=== PATIENT | female | born 1945 | race Caucasian/White ===

== ENCOUNTER 2017-04-23 08:58 | Outpatient (CLI) | payer MEDICARE, OTHER ==
[~2017-04-23] VITALS: Ht 170.2 cm; Wt 81.6 kg
[2017-04-23 09:10] VITALS: BP 155/82
[2017-04-23] MEDS ORDERED: CYCL1DRO OU (09:13)
[2017-04-23] MEDS ORDERED: OMEP20CA12 PO (09:13)
[2017-04-23 09:50] LABS: BASOPHILS % (AUTO) 1 % (0-10); BILIRUBIN,URINE NEGATIVE (NEGATIVE); EOSINOPHILS # (AUTO) 0.2 10^3/uL (0.0-0.3); EOSINOPHILS % (AUTO) 2 % (0-10); KETONES,URINE NEGATIVE (NEGATIVE); LEUKOCYTE ESTERASE ,URINE 1+ (NEGATIVE); LYMPHOCYTES # (AUTO) 1.4 X 10^3 (1.0-4.0); LYMPHOCYTES % (AUTO) 22 % (12-44); MEAN CORPUSCULAR HEMOGLOBIN 31 PG (25-34); MEAN CORPUSCULAR HGB CONC 34 G/DL (32-36); MEAN CORPUSCULAR VOLUME 90 FL (80-99); MEAN PLATELET VOLUME 9.6 FL (7.4-10.4); MONOCYTES # (AUTO) 0.4 X 10^3 (0.0-1.0); MONOCYTES % (AUTO) 6 % (0-12); NEUTROPHILS # (AUTO) 4.5 X 10^3 (1.8-7.8); NEUTROPHILS % (AUTO) 69 % (42-75); NITRITE,URINE NEGATIVE (NEGATIVE); PH,URINE 7 (5-9); PLATELET COUNT 276 10^3/uL (130-400); PROTEIN,URINE NEGATIVE (NEGATIVE); RED BLOOD COUNT 4.59 10^6/uL (4.35-5.85); RED CELL DISTRIBUTION WIDTH 12.9 % (10.0-14.5); UROBILINOGEN,URINE NORMAL (NORMAL); WHITE BLOOD COUNT 6.5 10^3/uL (4.3-11.0)
[2017-04-23 09:57] LABS: SQUAMOUS EPITHELIAL CELL,UR >50 /HPF
== END 2017-04-23 09:45 | disposition home or self-care (01) ==
LOC: PREOP 08:58
PROVIDERS: ATTEND Obstetrics & Gynecology
DX: Z01.812 Encounter for preprocedural laboratory examination (principal); Z11.2 Encounter for screening for other bacterial diseases; N81.10 Cystocele, unspecified; N81.6 Rectocele
CPT/HCPCS: 36415; 81000; 85025; 86850; 86900; 86901; 87081

== ENCOUNTER 2017-04-27 06:10 | Day surgery (SDC) | payer MEDICARE, OTHER ==
[~2017-04-27] VITALS: Ht 170.2 cm; Wt 81.6 kg
[2017-04-27] VITALS (9 sets, daily range): BP systolic 83–137; BP diastolic 49–86
[~2017-04-27 06:10] MED LIST: CYCL1DRO OU; OMEP20CA12 PO
--- OUTSIDE RECORDS SUMMARY | 2017-04-27 06:13 | XMS REPORT ---
Author Author WILEY FITZPATRICK Organization [employer] Address Unknown Phone Unavailable Care Team Providers Care Dry Drug Worker Name Role Phone WILEY FITZPATRICK CP Unavailable Allergies, Adverse Reactions, Alerts Substance Reaction Event Type N.K.D.A. Info Not Available Non Drug Allergy Problems Problem Type Condition Code Onset Dates Condition Status Problem Gastroesophageal reflux disease without esophagitis K21.9 Active Problem Routine general medical examination at health care facility V70.0 Active Problem Routine medical exam Z00.00 Active Assessment Routine medical exam Z00.00 Active Assessment Gastroesophageal reflux disease without esophagitis K21.9 Active Problem Unspecified tear film insufficiency 375.15 Active Problem Esophageal reflux 530.81 Active Medications Medication Code System Code Instructions Start Date End Date Status Dosage Restasis [facility] [address]-60 0.05 % Jan 22, 2014 instill 1 drop into affected eye(s) by ophthalmic route 2 times per day Omeprazole [facility] 08004130021 20 MG oral daily 1 capsule Procedures Procedure Coding System Code Date Office Visit, Est Pt., Level 4 CPT-4 19848 August 25, 2015 Vital Signs Date/Time: August 25, 2015 Cardiac Monitoring Heart Rate 78 bpm Temperature 97.5 F Height 67 in Blood Pressure Diastolic 76 mmHg Blood Pressure Systolic 118 mmHg Results No Known Results Summary Purpose [employer] Submission
--- OUTSIDE RECORDS SUMMARY | 2017-04-27 06:13 | XMS REPORT ---
Author Author WILEY FITZPATRICK Organization [employer] Address Unknown Phone Unavailable Care Team Providers Care Cement Handler Name Role Phone WILEY FITZPATRICK Unavailable Allergies No Known Allergies Problems Problem Type Condition Code Onset Dates Condition Status Problem Unspecified tear film insufficiency 375.15 Active Problem Esophageal reflux 530.81 Active Problem Routine general medical examination at health care facility V70.0 Active Medications Medication Code System Code Instructions Start Date End Date Status Dosage Azithromycin [facility] [address]-83 250 MG Orally Once a day May 19, 2015 May 24, 2015 2 tablets on the first day, then 1 tablet daily for 4 days Results No Known Results Summary Purpose [employer] Submission
--- OUTSIDE RECORDS SUMMARY | 2017-04-27 06:13 | XMS REPORT | Continuity of Care Document ---
Author Author [facility] Address Unknown Phone Unavailable Allergies There is no data. Medications There is no data. Problems Date Dx Coded Attending Type Code Diagnosis Diagnosed By 09/29/2013 MARY CARRASCO DO 375.15 TEAR FILM INSUFFICIENCY UNSPECIFIED 09/29/2013 CARRASCO DO MARY K 530.81 GERD 09/29/2013 ULYSSES CARRASCO DOA K V70.0 ROUTINE GENERAL MEDICAL EXAMINATION AT A HEALTH CARE FACILITY 09/29/2013 MAD[facility] DIRECTOR CRITICAL CARE, WILEY L 375.15 TEAR FILM INSUFFICIENCY UNSPECIFIED 09/29/2013 MADL DIRECTOR CRITICAL CARE, WILEY L 530.81 GERD 09/29/2013 MADL DIRECTOR CRITICAL CARE, WILEY L V70.0 ROUTINE GENERAL MEDICAL EXAMINATION AT A HEALTH CARE FACILITY 09/29/2013 MADL DIRECTOR CRITICAL CARE, WILEY L 375.15 TEAR FILM INSUFFICIENCY UNSPECIFIED 09/29/2013 MADL DIRECTOR CRITICAL CARE, WILEY L 530.81 GERD 09/29/2013 MADL DIRECTOR CRITICAL CARE, WILEY L V70.0 ROUTINE GENERAL MEDICAL EXAMINATION AT A HEALTH CARE FACILITY 09/07/2014 MADL DIRECTOR CRITICAL CARE, WILEY L 719.46 PAIN IN JOINT INVOLVING LOWER LEG 09/07/2014 MADL DIRECTOR CRITICAL CARE, WILEY L 719.46 PAIN IN JOINT INVOLVING LOWER LEG Procedures Code [place] [address] XRAY KNEE LEFT 3 VIEWS 09/07/2014 ORTHOPEDITA HUGO 09/07/2014 Results There is no data. Encounters ACCT No. Visit Date/Time Discharge Status Pt. Type Provider Facility Loc./Unit Complaint [id number] 09/07/2014 11:18:00 09/07/2014 23:59:59 CLS Outpatient MADL DIRECTOR CRITICAL CARE, WILEY L [id number] 09/07/2014 11:18:00 09/07/2014 23:59:59 CLS Outpatient MAD[facility] DIRECTOR CRITICAL CARE, WILEY L [id number] 09/29/2013 16:55:00 09/29/2013 23:59:59 [facility] Outpatient MARY CARRASCO DO
[2017-04-27] MEDS ORDERED: NS (IVPB) 100 ML ONE (06:47)
[2017-04-27] MEDS ORDERED: VASOPRESSIN INJECTION 20 UNIT/ML VIAL ONE (06:47)
[2017-04-27] MEDS ORDERED: ESTROGENS CONJ. CREAM 30 GM (PREMARIN) TUBE ONE (06:47)
[2017-04-27] MEDS ORDERED: proPOfol 200 MG/20 ML (DIPRIVAN) VIAL IV ONE (06:49)
[2017-04-27] MEDS ORDERED: SEVOFLURANE (ULTANE) 15 ML INHAL SOLN ONE ×5 (06:49→09:37)
[2017-04-27] MEDS ORDERED: HURRICAINE EXT TUBE (BENZOCAINE) ONE (06:49)
[2017-04-27] MEDS ORDERED: LIDOCAINE PF 2% 5 ML (XYLOCAINE) VIAL ONE (06:49)
[2017-04-27] MEDS ORDERED: DEXAMETHASONE 10 MG/ML (DECADRON) 1 ML VIAL ONE (06:49)
[2017-04-27] MEDS ORDERED: MIDAZOLAM 2 MG/2 ML (VERSED) VIAL ONE (06:50)
[2017-04-27] MEDS ORDERED: fentaNYL INJECTION 100 MCG/2 ML AMP ONE (06:50)
[2017-04-27] MEDS ORDERED: NS (IVPB) 50 ML ONE (07:00)
[2017-04-27] MEDS ORDERED: metroNIDAZOLE 500MG/100ML IVPB 100 ML ONE (07:00)
[2017-04-27] MEDS ORDERED: ceFAZolin 1,000 MG (ANCEF) VIAL ONE (07:00)
[2017-04-27] MEDS ORDERED: ceFAZolin 1 GM/NS 50 ML IVPB IV ONE ×2 (07:15)
[2017-04-27] MEDS ORDERED: metroNIDAZOLE 500MG/100ML IVPB 100 ML IV ONE (07:15)
[2017-04-27] MEDS ORDERED: ceFAZolin INJECTION 1,000 MG in NS (IVPB) 50 ML IV ONE (07:15)
[2017-04-27] MEDS ORDERED: CATHETER FLUSH 10 ML SYR IV PRN (07:15)
[2017-04-27] MEDS ORDERED: metroNIDAZOLE 500 MG/100 ML IVPB (PRE-MIX) IV ONE (07:15)
[2017-04-27] MEDS ORDERED: ATRACURIUM 50 MG/5 ML (TRACRIUM) IV ONE (07:16)
[2017-04-27] MEDS: LACTATED RINGERS 1,000 ML IV PRN ×2 (07:20→09:35)
--- NOTE | 2017-04-27 08:32 | History & Physical-Surgical ---
HPO-Surgical History of Present Illness Chief Complaint: Cystocele (sagging bladder) stress incontinence Diagnosis/Surgical Indication: cystocele, Stress incontinence Procedure: ANT/POST COLPORRHAPHY, SOLYX PV SLING Date of Surgery: Apr 27, 2017 Weight (Pounds): 180 Weight (Ounces): 0.0 Height (Feet): 5 Height (Inches): 7.00 Allergies and Home Medications Allergies Coded Allergies: No Known Drug Allergies (Unverified , 01/29/11) Home Medications Cyclosporine 1 Each Droperette, 1 DROP OU BID, (Reported) Omeprazole 20 Mg Capsule.dr, 20 MG PO DAILY, (Reported) Past Aazpxmp-Pqhqfi-Clacst Hx Patient Social History Marrital Status: Employed/Student: retired Alcohol Use: Denies Use Smoking Status: Former Smoker (quit > 30 years ago) Recent Hopitalizations: No Seasonal Allergies Seasonal Allergies: Yes Surgeries Yes Eye Surgery, Tonsillectomy Respiratory No Cardiovascular No Neurological No Reproductive System : No Hx : 5 Hx Para: 5 Hx Total # of Abortions (Spona: 0 Genitourinary No Gastrointestinal Yes Gastroesophageal Reflux Musculoskeletal Yes Arthritis Endocrine History of Endocrine Disorders: No Are Your Blood Sugars Over 250: No HEENT HEENT Disorders: Epiglottis Cancer No Did You Recieve Any Treatments: No Psychosocial History of Psychiatric Problem: No Integumentary History of Skin or Integumenta: No Blood Transfusions History of Blood Disorders: No Adverse Reaction to a Blood Tr: No Reviewed Nursing Assessment Reviewed/Agree w Nursing PMH: Yes Family Medical History Significant Family History: No Pertinent Family Hx Family Hx: Alcoholism 19 MOTHER Asthma 19 FATHER Cardiovascular disease 19 MOTHER Completed stroke 19 MOTHER Dementia 19 MOTHER Hypertension 19 MOTHER Respiratory disorder 19 FATHER (lung ca) Exam Vital Signs See RN Notes General Appearance: Alert, Oriented X3 Respiratory: Clear to Auscultation, Normal Air Movement Cardiovascular: Regular Rate, Normal S1, Normal S2, No Murmurs Abdominal: Normal Bowel Sounds, Soft, No Tenderness, No Hepatosplenomegaly Extremities: No Clubbing Skin: No Rashes Neuro: Normal Gait Assessment/Plan Assessment and Plan Symptomatic cystocele and Stress incontinence. Plan anterior colporrhaphy with Solyx pubovaginal sling. Declines hysterectomy Risks included, bleeding, infection, injury to bowel, bladder and ureter. Will used prophylactic antibiotics and SCDs NPO after Midnight proper consents signed Problems: PEACE,MARIO C DO Apr 27, 2017 8:32 am
[2017-04-27] MEDS ORDERED: GLYCOPYRROLATE 0.2 MG/ML (ROBINUL) 2 ML VIAL ONE (09:06)
[2017-04-27] MEDS ORDERED: METOCLOPRAMIDE INJ 10 MG/2 ML (REGLAN) IV PRN (09:45)
[2017-04-27] MEDS ORDERED: HYDROcodone/APAP 5 MG/325 MG (LORTAB) TAB PO PRN (09:45)
[2017-04-27] MEDS ORDERED: morphine INJ 10 MG/ML 1ML (SYR OR VIAL) IV PRN (09:45)
[2017-04-27] MEDS ORDERED: ONDANSETRON 4 MG/2 ML (SDV) Z0FRAN IV PRN (09:45)
[2017-04-27] MEDS ORDERED: BENZOCAINE/MENTHOL (DERMOPLAST) 56 ML CAN TP PRN (09:45)
--- NOTE | 2017-04-27 09:45 | Operative Report ---
Operative Report Date of Procedure/Surgery Apr 27, 2017 Surgeon (s) MARIO PEACE DO Transformer Tester (s): NA Post-Operative Diagnosis cystocele Stress incontinence UIterine prolapse Procedure Performed anterior colporrhaphy Solyx pubovavinal sling Description of Procedure Anesthesia Type: General Estimated blood loss (mL): 20 Specimen(s) collected/removed none Description of the Procedure The patient was taken to the operating room where sequential compression devices were placed prior to induction of anesthesia. Intravenous fluids were running. General endotracheal anesthesia was obtained without difficulty. She was then repositioned in the dorsal lithotomy position with the use of Yellofin stirrups. She was prepped and draped in the typical sterile fashion. A Rosado catheter was placed in the bladder. The Lonestar retractor was placed and sutured into place. The anterior vaginal epithelium was grasped in the midline with an Allis clamp. The anterior vaginal epithelium was injected with dilute vasopressin and then incised in the midline. The epithelium was dissected off the underlying fascia and then the midline cystocele was repaired with interrupted 2-0 Vicryl. The excess epithelium was incised and then the defect was closed with 2-0 Vicryl in a running fashion. A 1 cm incision was made in the suburethral space with a scalpel about 1.5 cm from the urethral meatus. I dissected bilaterally to the obturator membranes and then inserted the Solyx bilaterally and then tightened under the midurethra. I did a cystoscopy which was negative. There was bilateral urethral efflux of urine. I then kept 300 ml in the bladder and did a Cred. There was minimal leakage. The sling laid gently under the urethra and was not too tight. There was no intravesicular pathology. The incision was closed with 4-0 Monocryl in a running fashion. Rosado was reinserted. Vaginal pack with Estrace cream was placed. Patient was awakened and taken to the recovery room in stable condition. Following the case, instrument counts were correct. The patient was repositioned in the supine position and awakened from general anesthesia without difficulty. She was taken to recovery in stable condition. She will be observed overnight. Findings of the Procedure 3+ cystocele, > 50 degree rotation of urethra. 2-3+ uterine descent (patient declined hysterectomy), 1+ rectocele Allergies and Home Medications Allergies Coded Allergies: No Known Drug Allergies (Unverified , 01/29/11) Home Medications Cyclosporine 1 Each Droperette, 1 DROP OU BID, (Reported) Docusate Sodium 100 Mg Capsule, 100 MG PO BID, #60 Prescribed by: MARIO PEACE on 04/28/17 1000 Ibuprofen 600 Mg Tablet, 600 MG PO Q6H, #60 Prescribed by: MARIO PEACE on 04/28/17 1000 Omeprazole 20 Mg Capsule.dr, 20 MG PO DAILY, (Reported) [Hydrocodone Bit/Acetaminophen] Y TAB, 1-2 TAB PO Q4H PRN for PAIN-MODERATE TO SEVERE, #30 Prescribed by: MARIO PEACE on 04/28/17 1000 MARIO PEACE DO Apr 27, 2017 09:45
[2017-04-27] MEDS ORDERED: morphine INJ 10 MG/ML 1ML (SYR OR VIAL) IVP PRN (10:00)
[2017-04-27] MEDS ORDERED: KETOROLAC 30 MG/ML VIAL ONE (10:04)
[2017-04-27] MEDS: KETOROLAC 15 MG/ML VIAL IVP PRN ×2 (10:06→17:00)
[2017-04-27] MEDS: D5 LR IV SOLUTION 1,000 ML IV SCH ×2 (11:15→19:10)
[2017-04-27] MEDS ORDERED: DOCUSATE SODIUM 100 MG (COLACE) CAP PO SCH (21:00)
[2017-04-28] MEDS: IBUPROFEN 600 MG (MOTRIN) TAB PO SCH ×2 (00:15→06:07)
[2017-04-28 00:20] VITALS: BP 96/60
[2017-04-28] MEDS: D5 LR IV SOLUTION 1,000 ML IV SCH (02:40)
[2017-04-28 06:05] VITALS: BP 104/60
[2017-04-28] MEDS ORDERED: IBUPROFEN 600 MG (MOTRIN) TAB PO SCH (08:00)
[2017-04-28] MEDS ORDERED: DOCUSATE SODIUM 100 MG (COLACE) CAP PO SCH (09:00)
[2017-04-28 09:17] VITALS: BP 112/68
--- NOTE | 2017-04-28 09:59 | Progress Note-Standard ---
Standard Progress Note Progress Notes/Assess & Plan Date Seen by Provider: Apr 28, 2017 Time Seen by Provider: 09:45 Progress/Assessment & Plan Doing well today pod #1 s/p anterior colporrhaphy and solyx PV sling. she may have had a reaction to Toradol, though no rash, no dyspnea. Did not report to me. RN called with report. Pre RN notes - RN TO PT ROOM, PT SITTING UP IN BED EATING TACO SALAD, PT REPORTS "I'M FINALLY BACK", PT REPORTS AFTER GETTING SCHEDULED TORADOL SHE FELT "COLD THEN HOT, THEN DIZZY, THEN I WENT TO SLEEP FOR AWHILE AND NOW I FEEL FINE , EXPLAINED TO PT SHE RECEIVED THIS SAME MED IN RECOVERY WITHOUT A REACTION BUT NOTED I WOULD CALL DR PEACE AND NOTIFY HER TO STOP MEDICINE, PT VERBALIZES UNDERSTANDING AND IS VERY APPRECIATIVE, EXPLAINED TO PT ANYTIME SHE REPORTS FEELING "DIFFERENT" SHE NEEDS TO NOTIFY RN. Vitals are stable DC home once voids MARIO PEACE DO Apr 28, 2017 09:59
[2017-04-28] MEDS ORDERED: DOCU100C37 PO (10:00)
[2017-04-28] MEDS ORDERED: IBUP-1773 PO (10:00)
[2017-04-28] MEDS ORDERED: Hydrocodone Bit/Acetaminophen PO (10:00)
--- NOTE | 2017-04-28 10:06 | Discharge Inst-Women's Service ---
Discharge Inst-Women's Serv Depart Medication/Instructions New, Converted or Re-Newed RX: RX on Chart Final Diagnosis stress incontinence cystocele Procedure- anterior colporrhaphy, solyx pubovaginal sling Consults/Follow Up Additional Follow Up: Yes Activity Activity: Activity as Tolerated Driving Instructions: No Driving for 1 Week NO SMOKING: NO SMOKING Nothing Inside Vagina: No Douching, No Pulcifer, No Tampons Diet Discharge Diet: No Restrictions Symptoms to Report to : Bleeding Excessive, Pain Increased, Fever Over 101 Degrees F, Vaginal Bleeding Increase, Cramps in Feet or Legs, Vaginal Discharge Foul For Any Problems or Questions: Contact Your Physician Skin/Wound Care Stitches/[place]/Dermabond: Dermabond Bathing Instructions: MARIO Gaspar DO Apr 28, 2017 10:05
--- NOTE | 2017-04-28 12:30 | Anesthesia-General Post-Op ---
General Patient Condition Mental Status/LOC: Same as Preop Cardiovascular: Satisfactory Nausea/Vomiting: Absent Respiratory: Satisfactory Pain: Controlled Complications: Absent Post Op Complications Complications None Follow Up Care/Instructions Patient Instructions None needed. Anesthesia/Patient Condition Patient Condition Patient is doing well, no complaints, stable vital signs, no apparent adverse anesthesia problems. No complications reported per nursing. D/C home per [facility] Criteria: Yes ELIO CORREA CRNA Apr 28, 2017 12:30
== END 2017-04-28 10:50 | disposition home or self-care (01) ==
LOC: SDC 06:10 → WS 11:04 → SDC 04-28 10:50
PROVIDERS: ATTEND Obstetrics & Gynecology
DX: N81.11 Cystocele, midline (principal); N39.3 Stress incontinence (female) (male); K21.9 Gastro-esophageal reflux disease without esophagitis; M19.91 Primary osteoarthritis, unspecified site; Z79.899 Other long term (current) drug therapy
CPT/HCPCS: 94664

== ENCOUNTER → 2017-12-20 | Outpatient (CLI) | payer MEDICARE, OTHER ==
[~2017-12-20] MED LIST changes: +DOCU100C37 PO; +Hydrocodone Bit/Acetaminophen PO; +IBUP-1773 PO
--- NOTE | 2017-12-20 08:47 | Diagnostic Imaging Report ---
Indication: Osteoporosis screening. No prior studies are available for comparison. Bone mineral analysis of the lumbar spine and bilateral hips was performed. Bone mineral density of the lumbar spine L2 to L4 is 1.237 with a T score of 0.3. The bone mineral density of the left femoral neck is 0.774 with a T score -1.9. Bone mineral density of the right femoral neck is 0.780 with T score -1.9. Impression: Normal bone mineral density of the lumbar spine with osteopenia of bilateral femoral necks. Dictated by: Dictated on workstation # [id number]
== END ==
LOC: RAD 08:14
PROVIDERS: ATTEND Pediatrics
DX: Z13.820 Encounter for screening for osteoporosis (principal); Z12.11 Encounter for screening for malignant neoplasm of colon; M85.88 Other specified disorders of bone density and structure, other site
CPT/HCPCS: 77080

== ENCOUNTER 2018-04-15 11:27 | Outpatient (CLI) | payer MEDICARE, OTHER ==
[~2018-04-15] VITALS: Ht 170.2 cm; Wt 89.2 kg
[2018-04-15] MEDS ORDERED: IBUP-2055 PO (11:37)
[2018-04-15] MEDS ORDERED: LYSI500T3 PO (11:37)
[2018-04-15] MEDS ORDERED: CALC-794 PO (11:37)
[2018-04-15 11:40] VITALS: BP 152/90
[2018-04-15 12:12] LABS: BASOPHILS % (AUTO) 1 % (0-10); EOSINOPHILS # (AUTO) 0.1 10^3/uL (0.0-0.3); EOSINOPHILS % (AUTO) 2 % (0-10); HEMATOCRIT 41 % (35-52); HEMOGLOBIN 13.7 G/DL (11.5-16.0); LYMPHOCYTES # (AUTO) 1.3 X 10^3 (1.0-4.0); LYMPHOCYTES % (AUTO) 20 % (12-44); MEAN CORPUSCULAR HEMOGLOBIN 30 PG (25-34); MEAN CORPUSCULAR HGB CONC 33 G/DL (32-36); MEAN CORPUSCULAR VOLUME 90 FL (80-99); MEAN PLATELET VOLUME 9.5 FL (7.4-10.4); MONOCYTES # (AUTO) 0.5 X 10^3 (0.0-1.0); MONOCYTES % (AUTO) 7 % (0-12); NEUTROPHILS # (AUTO) 4.6 X 10^3 (1.8-7.8); NEUTROPHILS % (AUTO) 70 % (42-75); PLATELET COUNT 269 10^3/uL (130-400); RED BLOOD COUNT 4.57 10^6/uL (4.35-5.85); RED CELL DISTRIBUTION WIDTH 13.2 % (10.0-14.5); WHITE BLOOD COUNT 6.6 10^3/uL (4.3-11.0)
[2018-04-15 12:29] LABS: INR 1.1 (0.8-1.4); PROTHROMBIN TIME PATIENT 13.8 SEC (12.2-14.7)
[2018-04-15 12:38] LABS: BILIRUBIN,URINE NEGATIVE (NEGATIVE); CLARITY,URINE CLEAR; COLOR,URINE YELLOW; GLUCOSE, URINE (UA) NEGATIVE (NEGATIVE); KETONES,URINE NEGATIVE (NEGATIVE); LEUKOCYTE ESTERASE ,URINE 2+ (NEGATIVE); NITRITE,URINE NEGATIVE (NEGATIVE); PH,URINE 5 (5-9); PROTEIN,URINE NEGATIVE (NEGATIVE); UROBILINOGEN,URINE NORMAL (NORMAL)
[2018-04-15 12:49] LABS: BACTERIA,URINE TRACE /HPF; SQUAMOUS EPITHELIAL CELL,UR 0-2 /HPF; WBC,URINE 0-2 /HPF
[2018-04-15 12:52] LABS: ERYTHROCYTE SEDIMENTATION RATE 8 MM/HR (0-30)
[2018-04-15 13:25] LABS: ALANINE AMINOTRANSFERASE 11 U/L (0-55); ALBUMIN 4.4 GM/DL (3.2-4.5); ALKALINE PHOSPHATASE 70 U/L (40-136); BILIRUBIN,TOTAL 0.4 MG/DL (0.1-1.0); BUN/CREATININE RATIO 16; CALCIUM 9.6 MG/DL (8.5-10.1); CARBON DIOXIDE 25 MMOL/L (21-32); CHLORIDE 103 MMOL/L (98-107); CREATININE SERUM 0.86 MG/DL (0.60-1.30); GFR ESTIMATED > 60; GLUCOSE 86 MG/DL (70-105); POTASSIUM 3.9 MMOL/L (3.6-5.0); SODIUM 136 MMOL/L (135-145); TOTAL PROTEIN 7.4 GM/DL (6.4-8.2)
--- NOTE | 2018-04-15 13:32 | Diagnostic Imaging Report ---
INDICATION: Preoperative evaluation for left knee replacement COMPARISON: None FINDINGS: Frontal and lateral views of the chest demonstrate normal heart size and pulmonary vascularity. The lungs are clear. There are no signs of infiltrate, pleural effusions or pneumothoraces. The visualized osseous structures show no acute abnormalities. IMPRESSION: 1. No acute process. No signs of infiltrates, effusions or pneumothoraces. Dictated by: Dictated on workstation # [id number]
== END 2018-04-15 14:25 | disposition home or self-care (01) ==
LOC: PREOP 11:27
PROVIDERS: ATTEND Orthopaedic Surgery
DX: Z01.810 Encounter for preprocedural cardiovascular examination (principal); Z01.811 Encounter for preprocedural respiratory examination; Z01.812 Encounter for preprocedural laboratory examination; Z11.2 Encounter for screening for other bacterial diseases; M17.12 Unilateral primary osteoarthritis, left knee; R53.83 Other fatigue
CPT/HCPCS: 36415; 71046; 80053; 81000; 85025; 85610; 85652; 86850; 86900; 86901; 87081; 93005

== ENCOUNTER 2018-04-24 07:00 | Inpatient (IN) | payer MEDICARE, OTHER ==
--- NOTE | 2018-04-15 11:09 | HISTORY AND PHYSICAL ---
DATE OF SERVICE: 04/24/2018 ADMISSION HISTORY AND PHYSICAL DATE OF ADMISSION: 04/24/2018 HISTORY OF PRESENT ILLNESS: The patient is a 72-year-old female with progressive worsening left knee pain. She has severe patellofemoral and moderate medial and lateral arthrosis on radiographs. She has undergone treatment with multiple injections as well as activity modifications, anti-inflammatories and home exercises without relief. Due to functional impairment, the patient is failure to improve with conservative measures. The patient elected to proceed with surgical intervention. REVIEW OF SYSTEMS: No chest pain, no shortness of breath. No dysuria. PAST MEDICAL HISTORY: Reflux. PAST SURGICAL HISTORY: Tonsillectomy and cataract excision. FAMILY HISTORY: Significant for hypertension, ischemic heart disease. PRIMARY CARE PROVIDER: [facility]. MEDICATIONS: Restasis and omeprazole. ALLERGIES: No known drug allergies. SOCIAL HISTORY: The patient denies alcohol, tobacco use. PHYSICAL EXAMINATION: GENERAL: The patient is well developed, well-nourished, in no acute distress. HEENT: Normocephalic, atraumatic. Pupils equal, round, react to light. Oropharynx is clear. NECK: Supple, no lymphadenopathy. LUNGS: Clear to auscultation bilaterally. HEART: Regular rate and rhythm. ABDOMEN: Soft, nontender, nondistended. EXTREMITIES: The patient ambulates with an antalgic gait. Her left knee demonstrates a moderate effusion. She has marked patellofemoral crepitus and pain with patellar loading. There is no varus valgus laxity. Negative anterior and posterior drawer. Range of motion is 0/2/130. IMPRESSION: Left knee severe osteoarthritis, unresponsive to conservative measures. PLAN: Left total knee arthroplasty. The risks, benefits, options, ramifications and recovery were discussed at length with the patient. She understands and wishes to proceed. In addition, the patient will require a regular inpatient admission for pain management, physical therapy and gait training. Date of admission will be 04/24/2018. Job ID: [id number] DocumentID: [id number] Dictated Date: 04/15/2018 10:41:27 Metal Cut Off Saw Tender Date: 04/15/2018 11:08:47 Dictated By: PAZ LOPEZ MD
[~2018-04-24] VITALS: Ht 170.2 cm; Wt 89.2 kg
[~2018-04-24 07:00] MED LIST changes: +CALC-794 PO; +IBUP-2055 PO; +LYSI500T3 PO
[2018-04-24] MEDS ORDERED: CEFUROXIME INJECTION 1,500 MG in NS (IVPB) 50 ML IV ONE (07:15)
--- NOTE | 2018-04-24 07:26 | Progress Note-Pre Operative ---
Pre-Operative Progress Note H&P Reviewed The H&P was reviewed, patient examined and no changes noted. Date Seen by Provider: Apr 24, 2018 Time Seen by Provider: 07:26 Date H&P Reviewed: Apr 24, 2018 Time H&P Reviewed: 07:26 Pre-Operative Diagnosis: left knee primary osteoarthritis PAZ LOPEZ MD Apr 24, 2018 07:26
--- NOTE | 2018-04-24 07:27 | Progress Note-Post Operative ---
Post-Operative Progess Note Surgeon (s)/Waste Water Worker (s) Surgeon PAZ LOPEZ MD Waste Water Worker: Remington Hong Pre-Operative Diagnosis left knee primary osteoarthritis Post-Operative Diagnosis left knee primary osteoarthritis Procedure & Operative Findings Date of Procedure 04/24/18 Procedure Performed/Findings left total knee arthroplsty Anesthesia Type GETA Estimated Blood Loss Estimated blood loss (mL): minimal Specimens/Packing Specimens Removed minimal Packing: none PAZ LOPEZ MD Apr 24, 2018 07:27
[2018-04-24] MEDS ORDERED: OXYC1TAB87 PO (07:28)
[2018-04-24 07:30] VITALS: BP 122/65
[2018-04-24] MEDS ORDERED: INTRA-ARTICULAR IU ONE ×5 (07:30)
--- NOTE | 2018-04-24 07:31 | D/C HH Face to Face Order ---
D/C Face to Face Orders Instructions for Patient [facility], Patient Instructions/FollowUp: three weeks Physician to follow Patient: three weeks Discharge Diet for Home: Regular Diet Patient Data-Allergies,Ht & Wt Patient Allergies: Coded Allergies: No Known Drug Allergies (Unverified , 01/29/11) Height (Feet): 5 Height (Inches): 7.00 Weight (Pounds): 196 Weight (Ounces): 9.0 Home Health Need/Face to Face Date of Face to Face: Apr 24, 2018 Clinical Findings: Instability, Muscle weakness, Pain with ambulation, Unsteady gait I have seen Pt [id number]: Yes Discharged To: Home Diagnosis/Conditions: left total knee arthroplasty Patient is Homebound due to: [place] fall risk due to instabilty, Muscle weakness , Pain w/ambulation Homebound Status Due to the above stated illness, injury or surgical procedure (medical condition or diagnosis) and associated clinical findings, the patient is homebound because of his/her inability to leave home except with aid of a supportive device and/or person AND leaving the home requires a considerable and taxing effort or is medically contraindicated. Pt req the following assistanc: [facility] Nursing Orders Home Health Services Order: Physical Therapy-Evaluate & Treat dc left knee shay and apply steri strips 05/08/18 Therapy Orders Therapy Orders: Physical Therapy, PT to assess for OT Therapy Specific Orders: Teach enviro modifications/safety, Gait training, Increase strength/endurance, Provider maintenance therapy, Restore ROM Certify Stmt I certify that this patient is under my care and that I, a nurse practitioner or a physician; a radiology physician assistant working with me, had a face to face encounter that - meets the physician face to face encounter requirements with this patient as dated. PAZ LOPEZ MD Apr 24, 2018 07:31
[2018-04-24] MEDS: LACTATED RINGERS 1,000 ML IV PRN ×2 (07:50→09:55)
[2018-04-24] MEDS ORDERED: ONDANSETRON 4 MG/2 ML (SDV) Z0FRAN ONE (08:18)
[2018-04-24] MEDS ORDERED: BUPIVACAINE 0.5% 30 ML (SENSORCAINE) VIAL ONE (08:18)
[2018-04-24] MEDS ORDERED: DEXAMETHASONE 10 MG/ML (DECADRON) 1 ML VIAL ONE (08:18)
[2018-04-24] MEDS ORDERED: LIDOCAINE PF 2% 5 ML (XYLOCAINE) VIAL ONE (08:18)
[2018-04-24] MEDS ORDERED: proPOfol 200 MG/20 ML (DIPRIVAN) VIAL IV ONE (08:18)
[2018-04-24] MEDS ORDERED: SEVOFLURANE (ULTANE) 15 ML INHAL SOLN ONE (08:18)
[2018-04-24] MEDS ORDERED: MIDAZOLAM 2 MG/2 ML (VERSED) VIAL ONE (08:19)
[2018-04-24] MEDS ORDERED: fentaNYL INJECTION 100 MCG/2 ML AMP ONE (08:19)
[2018-04-24] MEDS ORDERED: ACETAMINOPHEN 325 MG TABLET PO PRN (09:15)
[2018-04-24] MEDS ORDERED: ONDANSETRON 4 MG/2 ML (SDV) Z0FRAN IVP PRN ×2 (09:15→11:15)
[2018-04-24] MEDS ORDERED: morphine PCA 100 MG/100 ML BAG IV PRN (09:15)
[2018-04-24] MEDS ORDERED: diphenhydrAMINE 50 MG/ML INJ (BENADRYL) IVP PRN (09:15)
[2018-04-24] MEDS ORDERED: TRANEXAMIC ACID 100 MG/ML 10 ML INJECTION IV ONE (09:32)
[2018-04-24] MEDS ORDERED: morphine INJ 10 MG/ML 1ML (SYR OR VIAL) ONE (11:02)
[2018-04-24] MEDS ORDERED: MEPERIDINE (DEMEROL) INJ 50 MG/ML ONE (11:06)
[2018-04-24] MEDS ORDERED: morphine INJ 10 MG/ML 1ML (SYR OR VIAL) IVP ONE (11:15)
[2018-04-24] MEDS ORDERED: HYDROmorphone 2 MG/ML VIAL (DILAUDID) IV ONE (11:15)
[2018-04-24] MEDS ORDERED: MEPERIDINE (DEMEROL) INJ 50 MG/ML IVP ONE (11:15)
--- NOTE | 2018-04-24 11:15 | Progress Note-Standard ---
Standard Progress Note Progress Notes/Assess & Plan Date Seen by a Provider: Apr 24, 2018 Time Seen by a Provider: 11:14 Progress/Assessment & Plan post op check no complaints radiographs--HW well positioned without fracture LLE--2 plus DP pulse with brisk cap refill. intact DF and PF of toes and ankle. sensation intact throughout s/p LTKA mobilize as able PAZ LOPEZ MD Apr 24, 2018 11:15
--- NOTE | 2018-04-24 11:41 | Diagnostic Imaging Report ---
EXAMINATION: Left knee in the OR at 11:07 AM. INDICATION: Postop total knee. TECHNIQUE: AP and lateral views were received from the OR. COMPARISON: There are no prior studies available for comparison. FINDINGS: There is a total knee prosthesis in place. The prosthetic elements appear to be in good position. There is gas in the soft tissues along the anterior aspect of the knee joint and there are skin shay evident. There is no fracture or acute bony abnormality noted. IMPRESSION: Stable post operative left knee. Dictated by: Dictated on workstation # [id number]
[2018-04-24 12:00] VITALS: BP 115/59
--- OUTSIDE RECORDS SUMMARY | 2018-04-24 12:40 | XMS REPORT ---
Author Author PAZ PAULA Organization [facility] Address [address] [place] [address] Care Team Providers Care Field Technical Specialist Name Role Phone PAZ PAULA Unavailable PROBLEMS Type Condition ICD9-CM Code NUZ60-HS Code Onset Dates Condition Status SNOMED Code Problem Osteoarthritis of both knees, unspecified osteoarthritis type M17.0 Active 157253663 Problem Female bladder prolapse N81.10 Active 651466406 Problem Gastroesophageal reflux disease without esophagitis K21.9 Active 862433940 ALLERGIES No Information ENCOUNTERS Encounter Location Date Diagnosis [facility] [id number] [place] [address] 26047- 0951 Apr, [facility] [id number] [place] [address] 34879- 1274 Apr, [facility] [id number] [place] [address] 87250- 7298 Mar, [address] [id number] [address] Mar, [facility] [id number] [place] [address] 22563- 1841 Mar, [facility] [id number] [place] [address] 08677- 9918 Mar, [facility] [id number] [place] [address] 00551- 8620 24 Jan, 2018 Gastroesophageal reflux disease without esophagitis K21.9 [facility] [id number] [place] [address] 26868- 8132 17 Jan, 2018 Left wrist tendonitis M77.8 and Callus of foot L84 [facility] [id number] [place] [address] 65595- 4540 Nov, Gastroesophageal reflux disease without esophagitis K21.9 ; Screening for malignant neoplasm of colon Z12.11 ; High risk for hip fracture Z91.89 ; Osteoarthritis of both knees, unspecified osteoarthritis type M17.0 and Routine medical exam Z00.00 [facility] [address], [place] [address] 2937 Nov, [facility] [id number] [place] [address] 51441- 6797 Mar, [facility] [id number] [place] [address] 42539- 9105 Jan, Female bladder prolapse N81.10 [facility] [id number] [place] [address] 63094- 4217 Jan, [facility] [id number] [place] [address] 61933- 3889 September, Bronchitis J40 and History of recent travel Z78.9 [facility] [id number] [place] [address] 67971- 5433 Oct, [facility] [id number] [place] [address] 72430- 9731 Oct, [facility] [address] [place] [address] 10952- 5106 Aug, Routine medical exam Z00.00 and Gastroesophageal reflux disease without esophagitis K21.9 [facility] [address], [place] [address] 0470 May, [facility] [id number] [address]- 7523 September, [facility] [id number] [place] [address] 69844- 5740 September, [facility] [address], [place] [address]- 1827 September, Osteoarthritis 715.90 [facility] [address], [place] [address]- 2546 September, [facility] [id number] [address]- 2685 Aug, [facility] [address], [place] [address]- 4046 Aug, [facility] [address], [place] [address]- 5457 Jun, [facility] [address], [place] [address]- 3603 Jun, [facility] [address] [place] [address] 14285- 0230 Jan, [facility] [address], [place] [address]- 8227 Jan, [facility] [address], [place] [address]- 5146 Dec, [facility] [address], [place] [address]- 3987 Dec, [facility] [address], [place] [address]- 3305 Oct, [facility] [id number], [place] [address]- 6655 Oct, [facility] [id number], [place] [address]- 5378 September, [facility] [id number], [place] [address]- 6511 September, IMMUNIZATIONS No Known Immunizations SOCIAL HISTORY Never Assessed REASON FOR VISIT Surgical clearance PLAN OF CARE VITAL SIGNS MEDICATIONS Unknown Medications RESULTS No Results PROCEDURES No Known procedures INSTRUCTIONS MEDICATIONS ADMINISTERED No Known Medications MEDICAL (GENERAL) HISTORY Type Description Date Medical History acid reflux Medical History Arthritis Surgical History tonsillectomy Surgical History wisdom teeth extraction Surgical History Bladder Suspension Surgery 05/2016 Hospitalization History childbirth only
--- OUTSIDE RECORDS SUMMARY | 2018-04-24 12:40 | XMS REPORT ---
Author Author SHANA LARSEN Organization [facility] Address [address] [place] [address] Care Team Providers Care Splicer Machine Operator Name Role Phone SHANA LARSEN Unavailable PROBLEMS Type Condition ICD9-CM Code [id number] Code Onset Dates Condition Status SNOMED Code Problem Osteoarthritis of both knees, unspecified osteoarthritis type M17.0 Active 138546828 Problem Female bladder prolapse N81.10 Active 549509428 Problem Gastroesophageal reflux disease without esophagitis K21.9 Active 266399487 ALLERGIES No Information ENCOUNTERS Encounter Location Date Diagnosis [place] [id number] [place] [address] 60314- 5884 Apr, [facility] [id number] [place] [address] 90219- 5504 Apr, [facility] [id number] [place] [address] 16753- 1499 Mar, [place] [id number] [address] Mar, [facility] [id number] [place] [address] 40325- 0927 Mar, [facility] [id number] [place] [address] 72377- 2355 Mar, [facility] [id number] [place] [address] 62757- 3015 24 Jan, 2018 Gastroesophageal reflux disease without esophagitis K21.9 [facility] [id number] [place] [address] 17262- 7258 17 Jan, 2018 Left wrist tendonitis M77.8 and Callus of foot L84 [facility] [id number] [place] [address] 19487- 6671 Nov, Gastroesophageal reflux disease without esophagitis K21.9 ; Screening for malignant neoplasm of colon Z12.11 ; High risk for hip fracture Z91.89 ; Osteoarthritis of both knees, unspecified osteoarthritis type M17.0 and Routine medical exam Z00.00 [facility] [address] [address]- 3734 Nov, [facility] [id number] [place] [address] 92850- 0182 Mar, [facility] [id number] [place] [address] 08909- 2671 Jan, Female bladder prolapse N81.10 [facility] [id number] [place] [address] 62347- 7884 Jan, [facility] [id number] [place] [address] 48790- 2181 September, Bronchitis J40 and History of recent travel Z78.9 [facility] [id number] [place] [address] 99636- 9770 Oct, [facility] [id number] [place] [address] 41040- 2809 Oct, [facility] [address] [place] [address] 72762- 5466 Aug, Routine medical exam Z00.00 and Gastroesophageal reflux disease without esophagitis K21.9 [facility] [address] [place] [address] 64289- 1035 May, [facility] [id number] [address]- 3480 September, [facility] [id number] [place] [address] 20422- 6042 September, [facility] [address] [address]- 3344 September, Osteoarthritis 715.90 [facility] [address] [address]- 2336 September, [facility] [address] [address]- 3754 Aug, [facility] [address] [address]- 2820 Aug, [facility] [address] [address]- 9715 Jun, [facility] [address] [address]- 8285 Jun, [facility] [address] [place] [address] 45279- 8452 Jan, [facility] [address] [address]- 1435 Jan, [facility] [address] 6772 Dec, [facility] [address] [address]- 0507 Dec, [facility] [address] 1182 Oct, [facility] [id number] [address]- 0545 Oct, [facility] [id number] [address]- 2515 September, [facility] [id number] [address]- 1299 September, IMMUNIZATIONS No Known Immunizations SOCIAL HISTORY Never Assessed REASON FOR VISIT surgical clearance PLAN OF CARE VITAL SIGNS MEDICATIONS Unknown Medications RESULTS No Results PROCEDURES No Known procedures INSTRUCTIONS MEDICATIONS ADMINISTERED No Known Medications MEDICAL (GENERAL) HISTORY Type Description Date Medical History acid reflux Medical History Arthritis Surgical History tonsillectomy Surgical History wisdom teeth extraction Surgical History Bladder Suspension Surgery 05/2016 Hospitalization History childbirth only
--- OUTSIDE RECORDS SUMMARY | 2018-04-24 12:40 | XMS REPORT ---
Author Author PAZ PAULA Organization [facility] Address [address] [place] [address] Care Team Providers Care Contract Serviceman Name Role Phone PAZ PAULA Unavailable PROBLEMS Type Condition ICD9-CM Code BRK65-SG Code Onset Dates Condition Status SNOMED Code Problem Osteoarthritis of both knees, unspecified osteoarthritis type M17.0 Active 640162370 Problem Female bladder prolapse N81.10 Active 111400510 Problem Gastroesophageal reflux disease without esophagitis K21.9 Active 796802208 ALLERGIES No Information ENCOUNTERS Encounter Location Date Diagnosis [place] [address] [address]64- 3779 Mar, [address] [id number] [id number] Mar, [facility] [address] 24770- 0658 Mar, [facility] [address] 51787- 7594 Mar, [place] [id number] [place] [address] 46432- 3114 Jan, Gastroesophageal reflux disease without esophagitis K21.9 [facility] [address] 36412- 8078 17 Jan, 2018 Left wrist tendonitis M77.8 and Callus of foot L84 [place] [address] 39542- 6406 Nov, Gastroesophageal reflux disease without esophagitis K21.9 ; Screening for malignant neoplasm of colon Z12.11 ; High risk for hip fracture Z91.89 ; Osteoarthritis of both knees, unspecified osteoarthritis type M17.0 and Routine medical exam Z00.00 [facility] [address], [place] [address]- 6561 Nov, [facility] [id number] [place] [address] 54491- 6633 Mar, [facility] [address], [place] [address]- 4369 Jan, Female bladder prolapse N81.10 [facility] [id number] [place] [address] 56091- 3222 Jan, [facility] [id number] [place] [address] 42630- 6217 September, Bronchitis J40 and History of recent travel Z78.9 [facility] [id number] [place] [address] 17723- 5489 07 Oct, 2015 [facility] [id number] [place] [address] 68842- 6396 Oct, [facility] [id number] [place] [address] 78537- 6207 13 Aug, 2015 Routine medical exam Z00.00 and Gastroesophageal reflux disease without esophagitis K21.9 [facility] [address] [address]- 9746 May, [facility] [address], [place] [address]- 6702 September, [facility] [id number] [address]- 0414 September, [facility] [address], [place] [address]- 1758 September, Osteoarthritis 715.90 [facility] [id number], [place] [address]- 8467 September, [facility] [address], [place] [address]- 6196 14 Aug, 2014 [facility] [address], [place] [address]- 6548 Aug, [facility] [address] [facility] [id number] [address]- 8348 Jun, [facility] [address] [facility] [id number] [address]- 0251 Jun, [facility] [id number] 6815 Jan, [facility] [address], [place] [address]- 6362 Jan, [facility] [id number], [place] [address]- 1728 Dec, [facility] [address] [address]- 2480 Dec, [facility] [id number], [place] [address]- 2978 Oct, [facility] [address] [id number], [place] [address]- 7860 Oct, [facility] [id number] [address]- 4629 September, [facility] [id number] [address]- 8583 September, IMMUNIZATIONS No Known Immunizations SOCIAL HISTORY Never Assessed REASON FOR VISIT Surgery Clearance PLAN OF CARE VITAL SIGNS MEDICATIONS Unknown Medications RESULTS No Results PROCEDURES No Known procedures INSTRUCTIONS MEDICATIONS ADMINISTERED No Known Medications MEDICAL (GENERAL) HISTORY Type Description Date Medical History acid reflux Medical History Arthritis Surgical History tonsillectomy Surgical History wisdom teeth extraction Surgical History Bladder Suspension Surgery 05/2016 Hospitalization History childbirth only
--- OUTSIDE RECORDS SUMMARY | 2018-04-24 12:41 | XMS REPORT ---
Author Author SHANA LARSEN Organization [facility] Address [address] [place] [address] Care Team Providers Care Oxidation Operator Name Role Phone SHANA LARSEN Unavailable PROBLEMS Type Condition ICD9-CM Code [id number] Code Onset Dates Condition Status SNOMED Code Problem Osteoarthritis of both knees, unspecified osteoarthritis type M17.0 Active 204208530 Problem Female bladder prolapse N81.10 Active 137135591 Problem Gastroesophageal reflux disease without esophagitis K21.9 Active 670844518 ALLERGIES No Information ENCOUNTERS Encounter Location Date Diagnosis [place] [address] [address]- 6637 Mar, [place] [address] 07684- 1025 Mar, [place] [address] 78244- 2567 Mar, [place] [address] 34317- 2261 Jan, Gastroesophageal reflux disease without esophagitis K21.9 [place] [address] 66780- 0303 17 Jan, 2018 Left wrist tendonitis M77.8 and Callus of foot L84 [place] [address] 89867- 6476 31 Nov, 2017 Gastroesophageal reflux disease without esophagitis K21.9 ; Screening for malignant neoplasm of colon Z12.11 ; High risk for hip fracture Z91.89 ; Osteoarthritis of both knees, unspecified osteoarthritis type M17.0 and Routine medical exam Z00.00 [place] [address] 73945- 3391 Nov, [facility] [address], [place] [address]- 1510 Mar, [facility] [id number] [place] [address] 45902- 3449 Jan, Female bladder prolapse N81.10 [facility] [id number] [place] [address] 67762- 4070 Jan, [facility] [id number] [place] [address] 25448- 3772 September, Bronchitis J40 and History of recent travel Z78.9 [facility] [id number] [place] [address] 39241- 5379 07 Oct, 2015 [facility] [id number] [place] [address] 29606- 8535 Oct, [facility] [id number] [place] [address] 81085- 5716 Aug, Routine medical exam Z00.00 and Gastroesophageal reflux disease without esophagitis K21.9 [facility] [id number] [place] [address] 08609- 5628 May, [facility] [id number] [place] [address] 25451- 7025 September, [facility] [id number] [place] [address] 08413- 9557 September, [facility] [id number] [place] [address] 94567- 9404 September, Osteoarthritis 715.90 [facility] [id number] [place] [address] 07384- 8047 September, [facility] [id number] [place] [address] 05119- 4700 14 Aug, 2014 [facility] [address] [place] [address] 73225- 7586 13 Aug, 2014 [facility] [id number], [place] [address]- 6314 Jun, [facility] [id number], [place] [address]- 3464 Jun, [facility] [address], [place] [address]- 3516 Jan, [facility] [address], [place] [address]- 1720 Jan, [facility] [address], [place] [address]- 2292 Dec, [facility] [address], [place] [address]- 2353 Dec, [facility] [address], [place] [address]- 9526 Oct, [facility] [address], [place] [address]- 4934 Oct, [facility] [id number], [place] [address]- 3892 September, [facility] [id number], [place] [address]- 1099 September, IMMUNIZATIONS No Known Immunizations SOCIAL HISTORY Never Assessed REASON FOR VISIT PLAN OF CARE VITAL SIGNS MEDICATIONS Unknown Medications RESULTS No Results PROCEDURES No Known procedures INSTRUCTIONS MEDICATIONS ADMINISTERED No Known Medications MEDICAL (GENERAL) HISTORY Type Description Date Medical History acid reflux Medical History Arthritis Surgical History tonsillectomy Surgical History wisdom teeth extraction Surgical History Bladder Suspension Surgery 05/2016 Hospitalization History childbirth only
--- OUTSIDE RECORDS SUMMARY | 2018-04-24 12:41 | XMS REPORT ---
Author Author PAZ PAULA Organization [facility] Address [address] [place] [address] Care Team Providers Care Attenuator Name Role Phone PAZ PAULA Unavailable PROBLEMS Type Condition ICD9-CM Code NVW38-AL Code Onset Dates Condition Status SNOMED Code Problem Osteoarthritis of both knees, unspecified osteoarthritis type M17.0 Active 018626138 Problem Female bladder prolapse N81.10 Active 102199878 Problem Gastroesophageal reflux disease without esophagitis K21.9 Active 158171553 ALLERGIES No Information ENCOUNTERS Encounter Location Date Diagnosis [place] [address] [address]74- 8874 Mar, [place] [address] 87240- 5701 Mar, [place] [address] 86273- 5842 Mar, [place] [address] 31320- 0941 Jan, Gastroesophageal reflux disease without esophagitis K21.9 [place] [address] 40919- 4293 17 Jan, 2018 Left wrist tendonitis M77.8 and Callus of foot L84 [place] [address] 24430- 3100 Nov, Gastroesophageal reflux disease without esophagitis K21.9 ; Screening for malignant neoplasm of colon Z12.11 ; High risk for hip fracture Z91.89 ; Osteoarthritis of both knees, unspecified osteoarthritis type M17.0 and Routine medical exam Z00.00 [place] [address] 03281- 2546 Nov, [facility] [address] [address]- 6108 Mar, [facility] [id number] [place] [address] 06912- 4383 Jan, Female bladder prolapse N81.10 [facility] [id number] [place] [address] 33836- 0732 Jan, [facility] [id number] [place] [address] 84247- 8827 September, Bronchitis J40 and History of recent travel Z78.9 [facility] [id number] [place] [address] 90737- 6021 07 Oct, 2015 [facility] [id number] [place] [address] 45794- 0992 Oct, [facility] [id number] [place] [address] 50557- 1609 Aug, Routine medical exam Z00.00 and Gastroesophageal reflux disease without esophagitis K21.9 [facility] [id number] [place] [address] 95958- 2358 May, [facility] [id number] [place] [address] 75941- 1094 September, [facility] [address] [place] [address] 29172- 2994 September, [facility] [id number] [place] [address] 65234- 5860 September, Osteoarthritis 715.90 [facility] [id number] [place] [address] 34170- 0485 September, [facility] [id number] [place] [address] 95470- 4314 14 Aug, 2014 [facility] [address] [address]- 7301 Aug, [facility] [address] [place] [id number] [address]- 9274 Jun, [facility] [id number] [address]- 9361 Jun, [facility] [id number] [address]- 1988 Jan, [facility] [id number] [address]- 5692 Jan, [facility] [address] [address]- 6722 Dec, [facility] [address] [address]- 6762 Dec, [facility] [address] [address]- 4223 Oct, [facility] [address] [address]- 9405 Oct, [facility] [id number] [address]- 7565 September, [facility] [address] [id number] [address]- 7622 September, IMMUNIZATIONS No Known Immunizations SOCIAL HISTORY Never Assessed REASON FOR VISIT Surgical Clearance Letter PLAN OF CARE VITAL SIGNS MEDICATIONS Unknown Medications RESULTS No Results PROCEDURES No Known procedures INSTRUCTIONS MEDICATIONS ADMINISTERED No Known Medications MEDICAL (GENERAL) HISTORY Type Description Date Medical History acid reflux Medical History Arthritis Surgical History tonsillectomy Surgical History wisdom teeth extraction Surgical History Bladder Suspension Surgery 05/2016 Hospitalization History childbirth only
--- OUTSIDE RECORDS SUMMARY | 2018-04-24 12:41 | XMS REPORT ---
Author Author WILEY FITZPATRICK Organization [facility] Address [address] [place] [address] Care Team Providers Care Senior Environmental Practice Leader Name Role Phone WILEY FITZPATRICK Unavailable PROBLEMS Type Condition ICD9-CM Code OYA10-MC Code Onset Dates Condition Status SNOMED Code Problem Female bladder prolapse N81.10 Active 177357913 Problem Gastroesophageal reflux disease without esophagitis K21.9 Active 850656832 Problem Esophageal reflux 530.81 Active 742027503 Problem Routine general medical examination at [facility] care facility V70.0 Active 723410824 Problem Routine medical exam Z00.00 Active 392110955 Problem Unspecified tear film insufficiency 375.15 Active 37052644 ALLERGIES No Known Allergies ENCOUNTERS Encounter Location Date Diagnosis [facility] [id number] [place] [address]46- 7579 Mar, [facility] [address] [address]- [address] Jan, Female bladder prolapse N81.10 [facility] [id number] [place] [address] 68905- 0977 Jan, [facility] [id number] [place] [address] 28228- 6820 September, Bronchitis J40 and History of recent travel Z78.9 [facility] [id number] [place] [address] 26365- 2000 Oct, [facility] [address] [address]- [address] Oct, [facility] [address] [address]- 8[address] 13 Aug, 2015 Routine medical exam Z00.00 and Gastroesophageal reflux disease without esophagitis K21.9 [facility] [address] [facility] [id number] [place] [address] May, [facility] [address] [facility] [id number] [place] [address]- 1256 September, [facility] [address] [id number] [address] 8478 September, [facility] [address] [facility] [id number] [address] 70[address] September, Osteoarthritis 715.90 [facility] [address] [id number] [place] [address] 4056 September, [facility] [address]65[address] [address] Aug, [facility] [address], [place] [address] 49[address] Aug, [facility] [address] [facility] [id number] [address]- 80[address] Jun, [facility] [address] [address]- 6[address] Jun, [facility] [address] [address]- 4839 Jan, [facility] [address] [address]- 7948 Jan, [facility] [address] [id number] [address]- 6197 Dec, [facility] [address] [facility] [id number] [place] [address] Dec, [facility] [address] [id number] [address]- 2016 Oct, [facility] [address] [id number] [place] [address]- 4460 Oct, [facility] [address] [facility] [id number] [place] [address]- 24[address] September, [facility] [address] [facility] [id number] [place] [address]- 1452 September, IMMUNIZATIONS No Known Immunizations SOCIAL HISTORY Never Assessed REASON FOR VISIT Prolapsed Bladder-AHarrymanRN PLAN OF CARE Activity Details Follow Up will proceed with the referral Reason: VITAL SIGNS Height 67 in 2017-02-06 Temperature 97.9 degrees Fahrenheit 2017-02-06 Heart Rate 66 bpm 2017-02-06 Respiratory Rate 20 2017-02-06 Blood pressure systolic 112 mmHg 2017-02-06 Blood pressure diastolic 68 mmHg 2017-02-06 MEDICATIONS Medication Instructions Dosage Frequency Start Date End Date Duration Status Omeprazole 20 MG oral daily 1 capsule 24h 60 Active Restasis 0.05 % instill 1 drop into affected eye(s) by ophthalmic route 2 times per day Jan, Active RESULTS No Results PROCEDURES Procedure Date Ordered Result Body Site [facility] VISIT ESTABLISHED PATIENT Feb 06, 2017 INSTRUCTIONS MEDICATIONS ADMINISTERED No Known Medications MEDICAL (GENERAL) HISTORY Type Description Date Medical History acid reflux Medical History Arthritis Surgical History tonsillectomy Surgical History wisdom teeth extraction Hospitalization History childbirth only
--- OUTSIDE RECORDS SUMMARY | 2018-04-24 12:41 | XMS REPORT ---
Author Author WILEY FITZPATRICK Organization [facility] Address [address] [place] [address] Care Team Providers Care Senior Trainer Name Role Phone WILEY FITZPATRICK Unavailable PROBLEMS Type Condition ICD9-CM Code [id number] Code Onset Dates Condition Status SNOMED Code Problem Osteoarthritis of both knees, unspecified osteoarthritis type M17.0 Active 796206468 Problem Female bladder prolapse N81.10 Active 508648017 Problem Gastroesophageal reflux disease without esophagitis K21.9 Active 694494197 ALLERGIES No Information ENCOUNTERS Encounter Location Date Diagnosis [place] [id number] [place] [address] 97858- 9903 Nov, Gastroesophageal reflux disease without esophagitis K21.9 ; Screening for malignant neoplasm of colon Z12.11 ; High risk for hip fracture Z91.89 ; Osteoarthritis of both knees, unspecified osteoarthritis type M17.0 and Routine medical exam Z00.00 [place] [id number] [place] [address] 75474- 8966 Nov, [place] [id number] [place] [address] 04614- 7152 Mar, [place] [id number] [place] [address] 58450- 4149 Jan, Female bladder prolapse N81.10 [place] [id number] [place] [address] 20895- 6104 Jan, [place] [id number] [place] [address] 60689- 9331 September, Bronchitis J40 and History of recent travel Z78.9 [place] [address] [address]- [address] Oct, [facility] [address] [place] [address]- 285[address] Oct, [facility] [id number] [place] [address]- 5409 Aug, Routine medical exam Z00.00 and Gastroesophageal reflux disease without esophagitis K21.9 [facility] [address] [place] [address]- 9316 May, [facility] [id number] [place] [address]- 8196 September, [facility] [address] [place] [address], [place] [address]- 6196 September, [facility] [id number] [place] [address], [place] [address]- 8396 September, Osteoarthritis 715.90 [facility] [id number] [place] [address], [place] [address]- 6946 September, [facility] [id number] [place] [address]- 1226 Aug, [facility] [id number] [place] [address]- 8978 Aug, [facility] [id number] [place] [address]- 7328 Jun, [facility] [address]65[address] [address]- 5577 Jun, [facility] [address], [place] [address]- 4131 Jan, [facility] [id number] [place] [address]- 6726 Jan, [facility] [address]65[address] [address]- 3466 Dec, [facility] [address] [address]- 9776 Dec, [facility] [address] [facility] [id number], [place] [address]- 3596 Oct, [facility] [address] [facility] [id number] [address]- 2546 Oct, [facility] [address] [facility] [id number], [place] [address]- 8642 September, [facility] [address] [id number] [address]- 9986 September, IMMUNIZATIONS No Known Immunizations SOCIAL HISTORY Never Assessed REASON FOR VISIT Establish Care PLAN OF CARE VITAL SIGNS MEDICATIONS No Known Medications RESULTS No Results PROCEDURES No Known procedures INSTRUCTIONS MEDICATIONS ADMINISTERED No Known Medications MEDICAL (GENERAL) HISTORY Type Description Date Medical History acid reflux Medical History Arthritis Surgical History tonsillectomy Surgical History wisdom teeth extraction Surgical History Bladder Suspension Surgery 05/2016 Hospitalization History childbirth only
--- OUTSIDE RECORDS SUMMARY | 2018-04-24 12:41 | XMS REPORT ---
Author Author RICKEY PEPPER Organization [facility] Address [address] [place] [address] Care Team Providers Care Referral Rn Name Role Phone RICKEY PEPPER Unavailable PROBLEMS Type Condition ICD9-CM Code RBX58-TO Code Onset Dates Condition Status SNOMED Code Problem Osteoarthritis of both knees, unspecified osteoarthritis type M17.0 Active 483283987 Problem Female bladder prolapse N81.10 Active 005488197 Problem Gastroesophageal reflux disease without esophagitis K21.9 Active 522805943 ALLERGIES No Information ENCOUNTERS Encounter Location Date Diagnosis [place] [address] [address]- [address] Jan, Gastroesophageal reflux disease without esophagitis K21.9 [place] [address] [address]47- [address] 17 Jan, 2018 Left wrist tendonitis M77.8 and Callus of foot L84 [place] [address] [address]- 4435 Nov, Gastroesophageal reflux disease without esophagitis K21.9 ; Screening for malignant neoplasm of colon Z12.11 ; High risk for hip fracture Z91.89 ; Osteoarthritis of both knees, unspecified osteoarthritis type M17.0 and Routine medical exam Z00.00 [place] [id number] [place] [address] 21522- 0464 Nov, [place] [address] [address]- 9437 Mar, [place] [address] 72731- 3042 Jan, Female bladder prolapse N81.10 [place] [address] 36428- 1086 Jan, [facility] [address] [address]- 6640 16 Sep, 2016 Bronchitis J40 and History of recent travel Z78.9 [facility] [address] [address]- 0628 07 Oct, 2015 [facility] [id number] [place] [address] 09134- 8252 07 Oct, 2015 [facility] [id number] [place] [address] 77130- 8262 13 Aug, 2015 Routine medical exam Z00.00 and Gastroesophageal reflux disease without esophagitis K21.9 [facility] [id number] [place] [address] 83626- 3457 06 May, 2015 [facility] [id number] [place] [address] 06648- 3528 September, [facility] [id number] [place] [address] 83044- 9103 September, [facility] [id number] [place] [address] 65094- 0223 September, Osteoarthritis 715.90 [facility] [id number] [place] [address] 85748- 2736 September, [facility] [address] [address]- 5728 Aug, [facility] [address] [address]- 8653 Aug, [facility] [address] [address]- 6574 Jun, [facility] [address] [address]- 4908 Jun, [facility] [address] [address]- 0813 Jan, [facility] [address] [facility] [id number] [address]- 9856 Jan, [facility] [id number] [address]- 3529 Dec, [facility] [id number] [address]- 3576 Dec, [facility] [id number] [address]- 6930 Oct, [facility] [id number] [address]- 5204 Oct, [facility] [id number] [address]- 2392 September, [facility] [id number] [address]- 7004 September, IMMUNIZATIONS No Known Immunizations SOCIAL HISTORY Never Assessed REASON FOR VISIT Refill request PLAN OF CARE VITAL SIGNS MEDICATIONS Medication Instructions Dosage Frequency Start Date End Date Duration Status Omeprazole 20 mg Orally Once a day 1 capsule 24h 60 Active RESULTS No Results PROCEDURES No Known procedures INSTRUCTIONS MEDICATIONS ADMINISTERED No Known Medications MEDICAL (GENERAL) HISTORY Type Description Date Medical History acid reflux Medical History Arthritis Surgical History tonsillectomy Surgical History wisdom teeth extraction Surgical History Bladder Suspension Surgery 05/2016 Hospitalization History childbirth only
--- OUTSIDE RECORDS SUMMARY | 2018-04-24 12:41 | XMS REPORT ---
Author Author RICKEY PEPPER Organization [facility] Address [address] [place] [address] Care Team Providers Care Box Gluer Name Role Phone RICKEY PEPPER Unavailable PROBLEMS Type Condition ICD9-CM Code SNM87-XU Code Onset Dates Condition Status SNOMED Code Problem Osteoarthritis of both knees, unspecified osteoarthritis type M17.0 Active 587801406 Problem Female bladder prolapse N81.10 Active 959010600 Problem Gastroesophageal reflux disease without esophagitis K21.9 Active 250710391 ALLERGIES No Known Allergies ENCOUNTERS Encounter Location Date Diagnosis [place] [id number] [place] [address] 28405- 5296 Jan, [facility] [id number] [place] [address] 52716- 0301 31 Nov, 2017 Gastroesophageal reflux disease without esophagitis K21.9 ; Screening for malignant neoplasm of colon Z12.11 ; High risk for hip fracture Z91.89 ; Osteoarthritis of both knees, unspecified osteoarthritis type M17.0 and Routine medical exam Z00.00 [facility] [address] [place] [address] 63188- 6255 Nov, [facility] [id number] [place] [address] 17320- 1413 Mar, [facility] [id number] [place] [address] 33942- 0718 Jan, Female bladder prolapse N81.10 [facility] [id number] [place] [address] 82059- 8657 Jan, [facility] [id number] [place] [address] 50493- 5159 September, Bronchitis J40 and History of recent travel Z78.9 [facility] [address] [facility] [id number] [address]- 2[address] 07 Oct, 2015 [facility] [address] [place] [address]- 1684 07 Oct, 2015 [facility] [address] [address]- 8884 13 Aug, 2015 Routine medical exam Z00.00 and Gastroesophageal reflux disease without esophagitis K21.9 [facility] [address] [facility] [id number] [place] [address]- 0581 06 May, 2015 [facility] [address] [place] [address] 68723- 3841 September, [facility] [address] [address]- 7024 September, [facility] [address] [place] [address] 65297- 5758 September, Osteoarthritis 715.90 [facility] [address] [address]- 1746 September, [facility] [address] [place] [address]- 7766 Aug, [facility] [address] [address]- 2706 Aug, [facility] [address] [address]- 0716 Jun, [facility] [address] [id number] [address]- 5694 Jun, [facility] [address] [place] [address]- 2961 Jan, [facility] [address] [place] [address]- 4064 Jan, [facility] [id number] 4332 Dec, [facility] [address] [facility] [id number] [address]- 2546 Dec, [facility] [address] [facility] [id number] [address]- 6726 Oct, [facility] [address] [facility] [id number] [address]- 2546 Oct, [facility] [address] [facility] [id number][place] [address]- 6706 September, [facility] [address] [facility] [id number] [address]- 6096 September, IMMUNIZATIONS No Known Immunizations SOCIAL HISTORY Never Assessed REASON FOR VISIT Establish Care - CECILIO Garcia PLAN OF CARE Activity Details Follow Up 1 Year Reason: VITAL SIGNS Height 67 in 2017-12-11 Temperature 98.2 degrees Fahrenheit 2017-12-11 Heart Rate 60 bpm 2017-12-11 Respiratory Rate 16 2017-12-11 Blood pressure systolic 120 mmHg 2017-12-11 Blood pressure diastolic 76 mmHg 2017-12-11 MEDICATIONS Medication Instructions Dosage Frequency Start Date End Date Duration Status Omeprazole 20 MG oral daily 1 capsule 24h 60 Active Restasis 0.05 % instill 1 drop into affected eye(s) by ophthalmic route 2 times per day Jan, Active RESULTS Name Result Date Reference Range DEXA Hip and Spine 2017-12-20 PROCEDURES Procedure Date Ordered Result Body Site [facility] VISIT ESTABLISHED PATIENT December 11, 2017 INSTRUCTIONS MEDICATIONS ADMINISTERED No Known Medications MEDICAL (GENERAL) HISTORY Type Description Date Medical History acid reflux Medical History Arthritis Surgical History tonsillectomy Surgical History wisdom teeth extraction Surgical History Bladder Suspension Surgery 05/2016 Hospitalization History childbirth only
--- OUTSIDE RECORDS SUMMARY | 2018-04-24 12:42 | XMS REPORT | Continuity of Care Document ---
Author Author [facility] Address Unknown Phone Unavailable Allergies Active Description Code Type Severity Reaction Onset Reported/Identified Relationship to Patient Clinical Status Yes No Known Drug Allergies [id number] Drug Allergy Unknown N/A 01/29/2011 Medications There is no data. Problems Date Dx Coded Attending Type Code Diagnosis Diagnosed By 09/29/2013 MARY CARRASCO DO 375.15 TEAR FILM INSUFFICIENCY UNSPECIFIED 09/29/2013 ULYSSES CARRASCO DOA K 530.81 GERD 09/29/2013 CARRASCO DO MARY K V70.0 ROUTINE GENERAL MEDICAL EXAMINATION AT A HEALTH CARE FACILITY 09/29/2013 MADL PHOTOSTATIC COPY MAKER, WILEY L 375.15 TEAR FILM INSUFFICIENCY UNSPECIFIED 09/29/2013 MADL PHOTOSTATIC COPY MAKER, WILEY L 530.81 GERD 09/29/2013 MADL PHOTOSTATIC COPY MAKER, WILEY L V70.0 ROUTINE GENERAL MEDICAL EXAMINATION AT A HEALTH CARE FACILITY 09/29/2013 MADL PHOTOSTATIC COPY MAKER, WILEY L 375.15 TEAR FILM INSUFFICIENCY UNSPECIFIED 09/29/2013 MADL PHOTOSTATIC COPY MAKER, WILEY L 530.81 GERD 09/29/2013 MADL PHOTOSTATIC COPY MAKER, WILEY L V70.0 ROUTINE GENERAL MEDICAL EXAMINATION AT A HEALTH CARE FACILITY 09/07/2014 MADL PHOTOSTATIC COPY MAKER, WILEY L 719.46 PAIN IN JOINT INVOLVING LOWER LEG 09/07/2014 MADL PHOTOSTATIC COPY MAKER, WILEY L 719.46 PAIN IN JOINT INVOLVING LOWER LEG 04/23/2017 MARIO PEACE DO Ot N81.10 CYSTOCELE, UNSPECIFIED 04/23/2017 MARIO PEACE DO Ot N81.6 RECTOCELE 04/23/2017 MARIO PEACE DO Ot Z01.812 ENCOUNTER FOR PREPROCEDURAL LABORATORY E 04/23/2017 MARIO PEACE DO Ot Z11.2 ENCOUNTER FOR SCREENING FOR OTHER BACTER 04/26/2017 PEACE DO, MARIO C Ot N81.10 CYSTOCELE, UNSPECIFIED 04/26/2017 PEACE DO, MARIO C Ot N81.6 RECTOCELE 04/26/2017 KOBI DO, MARIO C Ot Z01.812 ENCOUNTER FOR PREPROCEDURAL LABORATORY E 04/26/2017 KOBI WILLSON, MARIO C Ot Z11.2 ENCOUNTER FOR SCREENING FOR OTHER BACTER 04/28/2017 PEACE DO MARIO C Ot K21.9 GASTRO-ESOPHAGEAL REFLUX DISEASE WITHOUT 04/28/2017 PEACE DO, MARIO C Ot M19.91 PRIMARY OSTEOARTHRITIS, UNSPECIFIED SITE 04/28/2017 PEACE DO, MARIO C Ot N39.3 STRESS INCONTINENCE (FEMALE) (MALE) 04/28/2017 PEACE DO MARIO C Ot N81.11 CYSTOCELE, MIDLINE 04/28/2017 PEACE DO, MARIO C Ot Z79.899 OTHER SNF (CURRENT) DRUG THERAPY 05/24/2017 KOBI DO MARIO C Ot K21.9 GASTRO-ESOPHAGEAL REFLUX DISEASE WITHOUT 05/24/2017 PEACE DO, MARIO C Ot M19.91 PRIMARY OSTEOARTHRITIS, UNSPECIFIED SITE 05/24/2017 KOBI DO, MARIO C Ot N39.3 STRESS INCONTINENCE (FEMALE) (MALE) 05/24/2017 KOBI DO MARIO C Ot N81.11 CYSTOCELE, MIDLINE 05/24/2017 PEACE DO, MARIO C Ot Z79.[address] ENGINEER (CURRENT) DRUG THERAPY 01/30/2018 PATRIZIA KAMARA, RICKEY Wilkerson Ot M85.88 OT DISRD OF BONE DENSITY AND STRUCTURE, 01/30/2018 RICKEY ACHARYA MD Ot Z12.11 ENCOUNTER FOR SCREENING FOR MALIGNANT NE 01/30/2018 RICKEY ACHARYA MD Ot Z13.820 ENCOUNTER FOR SCREENING FOR OSTEOPOROSIS 04/17/2018 JESSICA KAMARA, PAZ Moore Ot M17.12 UNILATERAL PRIMARY OSTEOARTHRITIS, LEFT 04/17/2018 JESSICA KAMARA, PAZ Moore Ot R53.83 OTHER FATIGUE 04/17/2018 JESSICA KAMARA, PAZ Moore Ot Z01.810 ENCOUNTER FOR PREPROCEDURAL CARDIOVASCUL 04/17/2018 PAZ LOPEZ MD Ot Z01.811 ENCOUNTER FOR PREPROCEDURAL RESPIRATORY 04/17/2018 PAZ LOPEZ MD Ot Z01.812 ENCOUNTER FOR PREPROCEDURAL LABORATORY E 04/17/2018 JESSICA KAMARA, PAZ Moore Ot Z11.2 ENCOUNTER FOR SCREENING FOR OTHER BACTER Procedures Code [place] [id number] XRAY KNEE LEFT 3 VIEWS 09/07/2014 RASHID PEACE ITA 09/07/2014 Results Test Result Range Complete blood count (CBC) with automated white blood cell (WBC) differential - 04/23/17 09:36 Blood leukocytes automated count (number/volume) 6.5 10*3/uL 4.3-11.0 Blood erythrocytes automated count (number/volume) 4.59 10*6/uL 4.35-5.85 Venous blood hemoglobin measurement (mass/volume) 14.1 g/dL 11.5-16.0 Blood hematocrit (volume fraction) 41 % 35-52 Automated erythrocyte mean corpuscular volume 90 [foz_us] 80-99 Automated erythrocyte mean corpuscular hemoglobin (mass per erythrocyte) 31 pg 25-34 Automated erythrocyte mean corpuscular hemoglobin concentration measurement ( mass/volume) 34 g/dL 32-36 Automated erythrocyte distribution width ratio 12.9 % 10.0-14.5 Automated blood platelet count (count/volume) 276 10*3/uL 130-400 Automated blood platelet mean volume measurement 9.6 [foz_us] 7.4-10.4 Automated blood neutrophils/100 leukocytes 69 % 42-75 Automated blood lymphocytes/100 leukocytes 22 % 12-44 Blood monocytes/100 leukocytes 6 % 0-12 Automated blood eosinophils/100 leukocytes 2 % 0-10 Automated blood basophils/100 leukocytes 1 % 0-10 Blood neutrophils automated count (number/volume) 4.5 10*3 1.8-7.8 Blood lymphocytes automated count (number/volume) 1.4 10*3 1.0-4.0 Blood monocytes automated count (number/volume) 0.4 10*3 0.0-1.0 Automated eosinophil count 0.2 10*3/uL 0.0-0.3 Automated blood basophil count (count/volume) 0.0 10*3/uL 0.0-0.1 Complete urinalysis with reflex to culture - 04/23/17 09:36 Urine color determination YELLOW NRG Urine clarity determination CLEAR NRG Urine pH measurement by test strip 7 5-9 Specific gravity of urine by test strip 1.010 1.016- 1.022 Urine protein assay by test strip, semi-quantitative NEGATIVE NEGATIVE Urine glucose detection by automated test strip NEGATIVE NEGATIVE Erythrocytes detection in urine sediment by light microscopy 3+ NEGATIVE Urine ketones detection by automated test strip NEGATIVE NEGATIVE Urine nitrite detection by test strip NEGATIVE NEGATIVE Urine total bilirubin detection by test strip NEGATIVE NEGATIVE Urine urobilinogen measurement by automated test strip (mass/volume) NORMAL NORMAL Urine leukocyte esterase detection by dipstick 1+ NEGATIVE Automated urine sediment erythrocyte count by microscopy (number/high power field) [HPF] NRG Automated urine sediment leukocyte count by microscopy (number/high power field ) NONE NRG Bacteria detection in urine sediment by light microscopy TRACE NRG Squamous epithelial cells detection in urine sediment by light microscopy >50 NRG Crystals detection in urine sediment by light microscopy NONE NRG Casts detection in urine sediment by light microscopy NONE NRG Mucus detection in urine sediment by light microscopy NEGATIVE NRG Complete urinalysis with reflex to culture NO NRG Blood type T Indirect antibody screen panel - 04/23/17 09:36 ABO+Rh group OP NRG Blood group antibody screen NEGATIVE NRG Methicillin resistant Staphylococcus aureus (MRSA) screening culture - 09:36 Methicillin resistant Staphylococcus aureus (MRSA) screening culture NEG NRG Blood type T Indirect antibody screen panel - 04/27/17 06:25 ABO+Rh group OP NRG Transfusion band number [id number] NRG Blood group antibody screen NEGATIVE NRG Methicillin resistant Staphylococcus aureus (MRSA) screening culture - 11:42 Methicillin resistant Staphylococcus aureus (MRSA) screening culture NEG NRG Complete blood count (CBC) with automated white blood cell (WBC) differential - 04/15/18 11:55 Blood leukocytes automated count (number/volume) 6.6 10*3/uL 4.3-11.0 Blood erythrocytes automated count (number/volume) 4.57 10*6/uL 4.35-5.85 Venous blood hemoglobin measurement (mass/volume) 13.7 g/dL 11.5-16.0 Blood hematocrit (volume fraction) 41 % 35-52 Automated erythrocyte mean corpuscular volume 90 [foz_us] 80-99 Automated erythrocyte mean corpuscular hemoglobin (mass per erythrocyte) 30 pg 25-34 Automated erythrocyte mean corpuscular hemoglobin concentration measurement ( mass/volume) 33 g/dL 32-36 Automated erythrocyte distribution width ratio 13.2 % 10.0-14.5 Automated blood platelet count (count/volume) 269 10*3/uL 130-400 Automated blood platelet mean volume measurement 9.5 [foz_us] 7.4-10.4 Automated blood neutrophils/100 leukocytes 70 % 42-75 Automated blood lymphocytes/100 leukocytes 20 % 12-44 Blood monocytes/100 leukocytes 7 % 0-12 Automated blood eosinophils/100 leukocytes 2 % 0-10 Automated blood basophils/100 leukocytes 1 % 0-10 Blood neutrophils automated count (number/volume) 4.6 10*3 1.8-7.8 Blood lymphocytes automated count (number/volume) 1.3 10*3 1.0-4.0 Blood monocytes automated count (number/volume) 0.5 10*3 0.0-1.0 Automated eosinophil count 0.1 10*3/uL 0.0-0.3 Automated blood basophil count (count/volume) 0.0 10*3/uL 0.0-0.1 PT panel in platelet poor plasma by coagulation assay - 04/15/18 11:55 Prothrombin time (PT) in platelet poor plasma by coagulation assay 13.8 s 12.2-14.7 INR in platelet poor plasma or blood by coagulation assay 1.1 0.8-1.4 Erythrocyte sedimentation rate by westergren method - 04/15/18 11:55 Erythrocyte sedimentation rate by westergren method 8 mm 0-30 Blood type T Indirect antibody screen panel - 04/15/18 11:55 ABO+Rh group OP NRG Blood group antibody screen NEGATIVE [facility] Comprehensive metabolic panel - 04/15/18 11:55 Serum or plasma sodium measurement (moles/volume) 136 mmol/L 135-145 Serum or plasma potassium measurement (moles/volume) 3.9 mmol/L 3.6-5.0 Serum or plasma chloride measurement (moles/volume) 103 mmol/L 98-107 Carbon dioxide 25 mmol/L 21-32 Serum or plasma anion gap determination (moles/volume) 8 mmol/L 5-14 Serum or plasma urea nitrogen measurement (mass/volume) 14 mg/dL 7-18 Serum or plasma creatinine measurement (mass/volume) 0.86 mg/dL 0.60-1.30 Serum or plasma urea nitrogen/creatinine mass ratio 16 NRG Serum or plasma creatinine measurement with calculation of estimated glomerular filtration rate > NRG Serum or plasma glucose measurement (mass/volume) 86 mg/dL 70-105 Serum or plasma calcium measurement (mass/volume) 9.6 mg/dL 8.5-10.1 Serum or plasma total bilirubin measurement (mass/volume) 0.4 mg/dL 0.1-1.0 Serum or plasma alkaline phosphatase measurement (enzymatic activity/volume) 70 U/L 40-136 Serum or plasma aspartate aminotransferase measurement (enzymatic activity/ volume) 15 U/L 5-34 Serum or plasma alanine aminotransferase measurement (enzymatic activity/volume ) 11 U/L 0-55 Serum or plasma protein measurement (mass/volume) 7.4 g/dL 6.4-8.2 Serum or plasma albumin measurement (mass/volume) 4.4 g/dL 3.2-4.5 CALCIUM CORRECTED 9.3 mg/dL 8.5-10.1 Complete urinalysis with reflex to culture - 04/15/18 12:26 Urine color determination YELLOW NRG Urine clarity determination CLEAR NRG Urine pH measurement by test strip 5 5-9 Specific gravity of urine by test strip 1.015 1.016- 1.022 Urine protein assay by test strip, semi-quantitative NEGATIVE NEGATIVE Urine glucose detection by automated test strip NEGATIVE NEGATIVE Erythrocytes detection in urine sediment by light microscopy 3+ NEGATIVE Urine ketones detection by automated test strip NEGATIVE NEGATIVE Urine nitrite detection by test strip NEGATIVE NEGATIVE Urine total bilirubin detection by test strip NEGATIVE NEGATIVE Urine urobilinogen measurement by automated test strip (mass/volume) NORMAL NORMAL Urine leukocyte esterase detection by dipstick 2+ NEGATIVE Automated urine sediment erythrocyte count by microscopy (number/high power field) [HPF] NRG Automated urine sediment leukocyte count by microscopy (number/high power field ) [HPF] NRG Bacteria detection in urine sediment by light microscopy TRACE NRG Squamous epithelial cells detection in urine sediment by light microscopy 0-2 NRG Crystals detection in urine sediment by light microscopy NONE NRG Casts detection in urine sediment by light microscopy NONE NRG Mucus detection in urine sediment by light microscopy NEGATIVE NRG Complete urinalysis with reflex to culture NO NRG Blood type T Indirect antibody screen panel - 04/24/18 07:30 ABO+Rh group OP NRG Transfusion band number [id number] NRG Blood group antibody screen NEGATIVE NRG Encounters ACCT No. Visit Date/Time Discharge Status Pt. Type Provider Facility Loc./Unit Complaint [id number] 09/07/2014 11:18:00 09/07/2014 23:59:59 CLS Outpatient WILEY FITZPATRICK APRN [facility] [id number] 09/07/2014 11:18:00 09/07/2014 23:59:59 CLS Outpatient PATRICIA FITZPATRICK APRNRhea Mosher [id number] 09/29/2013 16:55:00 09/29/2013 23:59:59 [place] [id number] 12/11/2017 08:00:00 12/11/2017 23:59:59 CLS Outpatient RICKEY ACHARYA MD [facility] [id number] 04/15/2018 11:27:00 04/15/2018 14:25:00 DIS Outpatient PAZ LOPEZ MD [facility] PREOP OSTEOARTHRITIS LEFT KNEE [id number] 12/11/2017 09:57:00 12/11/2017 23:59:59 CLS Outpatient RICKEY ACHARYA MD [facility] RAD SCREENING FOR MALIGNANT NEOPLASM OF COLON [id number] 04/27/2017 06:10:00 04/28/2017 10:50:00 DIS Outpatient MARIO PEACE DO [facility] GENITAL PROLAPSE; CYSTOCELE/RECTOCELE [id number] 04/23/2017 08:58:00 04/23/2017 09:45:00 DIS Outpatient MARIO PEACE DO [facility] PREOP GENITAL PROLAPSE, CYSTOCELE/RECTOCELE [id number] 04/24/2018 07:00:00 ACT Inpatient PAZ LOPEZ MD [facility] SURG OSTEOARTHRITIS LEFT KNEE [id number] 04/16/2017 08:39:00 Document Registration
[2018-04-24] MEDS: NS IV 1000 ML 1,000 ML IV SCH (13:04)
--- NOTE | 2018-04-24 14:39 | Physical Therapy Evaluation ---
PT Evaluation-General Medical Diagnosis Admission Date Apr 24, 2018 at 07:00 Medical Diagnosis: left TKA Onset Date: Apr 24, 2018 Therapy Diagnosis Therapy Diagnosis: impaired mobility, strength, endurance, ROM Height/Weight Height (Feet): 5 Height (Inches): 7.00 Weight (Pounds): 196 Weight (Ounces): 9.0 Precautions Precautions/Isolations: Standard Precautions Weight Bear Status Left Lower Extremity: Left Weight Bearing/Tolerated Referral Physician: Remington Hong Reason for Referral: Evaluation/Treatment Medical History Additional Medical History reflux, tonsillectomy, cataract surg Social History Home: Single Level Current Living Status: Spouse Entry Into Home: Stairs With Railing PT Steps Into Home: 3 Patient has basement but she says she doesn't need to go down there. Prior/Core FIM Prior Level of Function Therapy Code Descriptions/Definitions Functional [place] Measure: 0=Not Assessed/NA 4=Minimal Assistance 1=Total Assistance 5=Supervision or Setup 2=Maximal Assistance 6=Modified [place] 3=Moderate Assistance 7=Complete [place] Therapy Quality Codes: 6 Independent with activity with or without an assistive device 5 Patient requires set up or clean up by helper. Patient completes activity by themselves 4 Supervision or touching assist (CGA). [place] provide cues , steadying assist 3 The helper provides less than half the effort to complete the activity 2 The helper provides more than half the effort to complete the activity 1 Dependent. The helper does all the effort to complete an activity 7 Patient refused to complete or attempt activity 9 The patient did not perform the activity before the current illness or injury 88 Not attempted due to Medical conditions or safety concerns Functional Abilities and Goals: Independent: Patient completed the activities by him/herself, with or without an assistive device, with no assistance from a helper. Needed Some Help: Patient needed partial assistance from another person to complete activities. Dependent: A helper completed the activities for the patient. Unknown: Not Applicable: Bed Mobility: 7 Transfers (B,C,W/C) (FIM): 7 Gait: 7 Stairs: 7 Indoor Mobility (Ambulation): Independent Stairs: Independent Patient has her own 4-wheeled walker PT Evaluation-Current Subjective Patient in bed pre tx, agrees to PT, no complaints of pain at rest. Pt/Family Goals to be independent at home Objective Patient Orientation: Person, Place, Situation Attachments: SCD's, Polar Pack, IV ROM/Strength ROM Lower Extremities left knee flexion 80 degrees, extension +10 degrees Neuromuscular (Tone, Coordination, Reflexes) NT Sensory Vision: Wears Glasses Hearing: Functional Sensation Right Lower Extremit: Intact Sensation Left Lower Extremity: Impaired Sensation Lower Extremities Patient has numbness in medial knee, calf, and foot. Transfers Therapy Code Descriptions/Definitions Functional [place] Measure: 0=Not Assessed/NA 4=Minimal Assistance 1=Total Assistance 5=Supervision or Setup 2=Maximal Assistance 6=Modified [place] 3=Moderate Assistance 7=Complete [place] Transfers (B, C, W/C) (FIM): 4 Scootin Rollin Supine to/from Sit: 5 Sit to/from Stand: 4 bed t/f WC(FIM only if WC use): 4 CGA for sit <-> stand and transfers, cues for hand placement and safety. Patient did get nauseated after sitting at the side of the bed but did not vomit. Gait Mode of Locomotion: Walk Anticipated Mode of Locomotion: Walk Gait (FIM): 1 Distance: 10'x2 Gait Level of Assist: 4 Gait Persons Needed: 1 Gait Assistive Device: FWW Comments/Gait Description Patient ambulated to the bathroom and back, was able to toilet with SBA. She got nauseated again on the way back to bed but again did not actually vomit. Patient has antalgic gait with flexed left knee and decreased stance time. Balance Sitting Static: Normal Sitting Dynamic: Normal Standing Static: Good Standing Dynamic: Good Treatment left TKA protocol x10 (AP, QS, HS, SAQ, SLR) Assessment/Needs Patient has impaired mobility, strength, endurance, ROM post left TKA. Patient back to bed post tx with nurse call, phone, tray, all needs met. CPM donned and fit to her leg and set to 70/-2, polar care and SCD's on. Rehab Potential: Fair PT Short Term Goals Short Term Goals Time Frame: May 01, 2018 Transfers (B,C,W/C) (FIM): 5 Gait (FIM): 5 Gait Distance Comment: 150' Gait Level of Assist: 5 Gait Assistive Device: FWW PT Plan Problem List Problem List: Activity Tolerance, Functional Strength, Safety, Balance, Gait, Transfer, Bed Mobility, ROM Treatment/Plan Treatment Plan: Continue Plan of Care Treatment Plan: Bed Mobility, Education, Functional Activity Otilio, Functional Strength, Gait, Safety, Therapeutic Exercise, Transfers Treatment Duration: May 01, 2018 Frequency: 11 times per week Estimated Hrs Per Day: .25 hour per day Patient and/or Family Agrees t: Yes Safety Risks/Education Patient Education: Gait Training, Transfer Techniques, Correct Positioning, Safety Issues Teaching Recipient: Patient Teaching Methods: Demonstration, Discussion Response to Teaching: Reinforcement Needed Discharge Recommendations Plan Patient will perform bed mobility and transfer training, balance and endurance training, functional strengthening, stair training, gait training, and education , to improve functional mobility and independence at home. Therapy D/C Recommendations: Home w/ Family Support Time/GCodes Time In: 1355 Time Out: 1430 Total Billed Treatment Time: 35 Total Billed Treatment 1 visit [facility] 20' GT 15' FAVIAN BARRETT PT Apr 24, 2018 14:39
[2018-04-24] MEDS ORDERED: FLU QUADRIvalent (5+ YOA) 2018-2019 (AFLURIA) 0.5 ML IM ONE (15:15)
[2018-04-24 16:00] VITALS: BP 115/59
--- NOTE | 2018-04-24 16:19 | Consultation (CHS) ---
HPI History of Present Illness: Here for left knee replacement with Dr Goncalves. Patient not taking any medications and declines any previous medical diagnosis Source: patient, family () Exam Limitations: no limitations Date seen by provider: Apr 24, 2018 Time Seen by Provider: 13:10 Attending Physician Bryson Goncalves MD PCP Lyric Altamirano MD Consult Date of Admission Apr 24, 2018 at 07:00 Home Medications Home Medications Reviewed patient Home Medication Reconciliation performed by pharmacy medication reconciliations instrument technician and/or nursing. Patients Allergies have been reviewed. Allergies Coded Allergies: No Known Drug Allergies (Unverified , 04/24/18) OCI-Kcyozx-Rpjfch Hx Patient Social History Living Status: Lives with spouse in house with 2 stairs Alcohol Use: Occasionally Uses Recreational Drug Use: No Smoking Status: Former Smoker Recent Foreign Travel: No Contact w/other who traveled: No Recent Hopitalizations: No Recent Infectious Disease Expo: No Physical Abuse Screen: No Sexual Abuse: No Immunizations Up To Date Tetanus Booster (TDap): Unknown Past Medical History Osteoarthritis Family Medical History Significant Family History: No Pertinent Family Hx Family History: Alcoholism 19 MOTHER Asthma 19 FATHER Cardiovascular disease 19 MOTHER Completed stroke 19 MOTHER Dementia 19 MOTHER Hypertension 19 MOTHER Respiratory disorder 19 FATHER (lung ca) Review of Systems ([facility]) Constitutional: no symptoms reported; No chills, No fever EENTM: no symptoms reported Respiratory: no symptoms reported; No cough, No dyspnea on exertion, No short of breath Cardiovascular: no symptoms reported; No chest pain, No edema, No palpitations Gastrointestinal: no symptoms reported Genitourinary: no symptoms reported : No Musculoskeletal: no symptoms reported Skin: no symptoms reported Psychiatric/Neurological: No Symptoms Reported All Other Systems Reviewed Negative Unless Noted: Yes Physical Exam-(CHC) Physical Exam Vital Signs VS - Last 72 Hours, by Label 04/24/18 04/24/18 04/24/18 07:30 12:00 12:00 Temp 98.6 97.5 Pulse 57 58 Resp 16 16 B/P (MAP) 122/65 (84) 115/59 (77) Pulse Ox 98 96 O2 Delivery Room Air Nasal Cannula Room Air O2 Flow Rate 2.00 Capillary Refill : General Appearance: WD/WN, no apparent distress HEENT: PERRL/EOMI Neck: non-tender, full range of motion Respiratory: chest non-tender, lungs clear, normal breath sounds, no respiratory distress, no accessory muscle use Cardiovascular: normal peripheral pulses, regular rate, rhythm, no edema, no murmur Gastrointestinal: normal bowel sounds, non tender, soft, no organomegaly Extremities: no calf tenderness, normal capillary refill, other (compression hose in place) Neurologic/Psychiatric: director operations II-XII nml as tested, no motor/sensory deficits, alert, normal mood/affect, oriented x 3 Skin: normal color, warm/dry Lymphatic: no adenopathy Assessment/Plan Assessment/Plan (1) Osteoarthritis of left knee Status: Chronic Assessment & Plan: - Asked to see Dr Goncalves's patient in medical consultation, patient does not take any medications and declines any medical problems, doing well post op - Thanks for the consult, please call if you have any concerns Clinical Quality Measures DVT/VTE Risk/Contraindication: Risk Factor Score Per Nursin RFS Level Per Nursing on Admit: 4+=Very High Copy Copies To 1: SHANA LARSEN MD, HOLLY R MD Apr 24, 2018 16:19
--- NOTE | 2018-04-24 16:26 | OPERATIVE REPORT ---
DATE OF SERVICE: 04/24/2018 PREOPERATIVE DIAGNOSIS: Left knee primary osteoarthritis. POSTOPERATIVE DIAGNOSIS: Left knee primary osteoarthritis. PROCEDURE: Left total knee arthroplasty. SURGEON: Bryson Lopez MD ELECTRONIC SEMICONDUCTOR PROCESSOR: Remington Hong, who assisted throughout the procedure and closed the incision. ANESTHESIA: Regional block plus general endotracheal by Sayda Schwartz CRNA. TOURNIQUET TIME: Approximately 60 minutes at 300 mmHg. ESTIMATED BLOOD LOSS: Minimal. DRAINS: None. COMPLICATIONS: None. POSTOPERATIVE PLAN: Routine protocol. The patient was transferred to the recovery room, awake and in stable condition. MATERIALS: MicroPort cemented size 5 femur, cemented size 5 tibia with a 12 mm insert and a cemented size 32 patellar button. STATEMENT OF MEDICAL NECESSITY: The patient is a 72-year-old female with longstanding left knee pain. Radiographs revealed severe patellofemoral and medial arthrosis. She has undergone treatment with injections and arthroscopy without relief. Due to functional impairment and failure to improve with conservative measures, the patient elected to proceed with surgical intervention. DESCRIPTION OF PROCEDURE: After risks and benefits of procedure were discussed and questions were answered, an informed consent was signed and placed on chart. The operative site was confirmed in the preoperative holding area initialed by the surgeon. The patient was then transported to the operating room and after adequate levels of general endotracheal anesthetic were obtained, a timeout was called confirming the operative site. Left lower extremity was prepped and draped in the usual sterile fashion with the leg elevated and the knee flexed, tourniquet was inflated to 300 mmHg. Standard anterior approach was utilized. Hemostasis was obtained with cautery and a medial parapatellar arthrotomy was performed leaving 1 cm cuff on the patella for later reattachment. A portion of the fat pad was resected. A subperiosteal release was performed on the proximal medial tibia being careful to stay on the bony surface. The ACL was resected. Intramedullary guide was passed into the femur and the distal cutting block was placed. The distal cut was made. The femur sized to a size 5. The 5 cutting block was placed parallel to the epicondylar axis and cuts were made from posterior to anterior. A subperiosteal release was then carefully performed of the posterior distal femur, being careful to stay on the bony surface. The intramedullary guide was passed into the tibia. The cutting block was placed and the drop armando transected the intramedullary access and the cut was made. The five baseplate was placed and the drop armando transected the intermalleolar axis. This was repaired using the drill and keel punch. The trials were inserted. The trochlear cut was made on the femur. The patella was then prepared by resecting 10 mm off the undersurface peg guide was placed and the peg holes were drilled. The trials were inserted with a 12 mm insert. Full extension was easily obtained, 120 degrees of flexion with gravity was easily obtained. The patella tracked well. There was no anterior/posterior or medial/lateral laxity in flexion or extension. The trials were removed. The joint was irrigated with pulse lavage. Periarticular block was placed in the posterior capsule, medial and lateral retinaculum and extensor mechanism as well as subcutaneous tissues. The bone ends were irrigated and dried. The tibial baseplate was cemented into position. Excess cement was removed. The superior surface was irrigated and dried and the polyethylene insert was placed. Distal femur was irrigated and dried and the femoral prosthesis was cemented into position. Excess cement was removed. The knee was brought out into full extension until the cement had cured. The undersurface of patella was irrigated and dried. The patellar button was cemented into position. Excess cement was removed. Once the cement had cured, the knee was taken through range of motion, full extension was easily obtained, 120 degrees flexion with gravity was easily obtained. The patella tracked well. There was no anterior/posterior or medial/lateral laxity in flexion or extension. The joint was further irrigated with pulse lavage. The arthrotomy was closed with #2 Tevdek in [id number] interrupted fashion. The knee was flexed. Patella tracked well. There was no undue tension at the repair site. The subcutaneous tissues were irrigated using a total of 6 liters throughout the procedure. A 0 Vicryl was used for the deep subcutaneous tissue, 2-0 Vicryl for the superficial subcutaneous tissue, shay used on the skin. A soft dressing was applied. The tourniquet was deflated. The patient was transferred to the recovery room, awake and in stable condition. Job ID: [id number] DocumentID: [id number] Dictated Date: 04/24/2018 11:11:35 Baby Stroller Rental Clerk Date: 04/24/2018 16:25:33 Dictated By: BRYSON LOPEZ MD
[2018-04-24] MEDS: CEFUROXIME INJECTION 750 MG in NS (IVPB) 50 ML IV SCH (17:03)
[2018-04-24 19:35] VITALS: BP 123/58
[2018-04-24] MEDS: SENNA W/DOCUSATE (SENOKOT S) TABLET PO SCH (21:46)
[2018-04-25] VITALS (7 sets, daily range): BP systolic 120–145; BP diastolic 60–91
[2018-04-25] MEDS: NS IV 1000 ML 1,000 ML IV SCH ×2 (01:33→14:52)
[2018-04-25] MEDS: CEFUROXIME INJECTION 750 MG in NS (IVPB) 50 ML IV SCH (01:33)
[2018-04-25] MEDS: MULTIVIT W/MINERALS TAB (THERAGRAN M) PO SCH (05:45)
--- NOTE | 2018-04-25 07:10 | Anesthesia-General Post-Op ---
General Patient Condition Mental Status/LOC: Same as Preop Cardiovascular: Satisfactory Nausea/Vomiting: Absent Respiratory: Satisfactory Pain: Controlled Complications: Absent Post Op Complications Complications None Follow Up Care/Instructions Patient Instructions None needed. Anesthesia/Patient Condition Patient Condition Patient is doing well, no complaints, stable vital signs, no apparent adverse anesthesia problems. No complications reported per nursing. ELIO CORREA CRNA Apr 25, 2018 07:10
--- NOTE | 2018-04-25 08:00 | Progress Note-Standard ---
Standard Progress Note Progress Notes/Assess & Plan Date Seen by a Provider: Apr 25, 2018 Time Seen by a Provider: 07:59 Progress/Assessment & Plan post op check no complaints radiographs--HW well positioned without fracture LLE--2 plus DP pulse with brisk cap refill. intact DF and PF of toes and ankle. sensation intact throughout s/p LTKA mobilize as able Final Diagnosis No complaints Vital Signs Date Time Temp Pulse Resp B/P (MAP) Pulse Ox O2 Delivery O2 Flow Rate FiO2 04/25/18 05:53 18 04/25/18 04:00 97.8 74 18 134/67 (89) 97 Room Air 04/25/18 00:56 97.6 68 18 128/60 (82) 95 Room Air 04/24/18 21:57 Room Air 04/24/18 21:00 Room Air 04/24/18 19:35 97.1 55 18 123/58 (79) 97 Room Air 04/24/18 18:50 20 04/24/18 16:00 96.4 54 16 115/59 (77) 92 Room Air 04/24/18 12:00 97.5 58 16 115/59 (77) 96 Room Air 04/24/18 12:00 Nasal Cannula 2.00 I & O 04/25/18 07:00 Intake Total 2620 ml Output Total 0 ml Balance 2620 ml Laboratory Tests Test 04/25/18 06:10 Range/Units Hemoglobin 11.0 L 11.5-16.0 G/DL Hematocrit 32 L 35-52 % LLE--NVI . dressing intact. able to perform SLR s/p LTKA doing well PT/OT PAZ LOPEZ MD Apr 25, 2018 08:00
[2018-04-25] MEDS: SENNA W/DOCUSATE (SENOKOT S) TABLET PO SCH ×2 (08:09→20:39)
[2018-04-25] MEDS: ASPIRIN E.C. 81 MG (ECOTRIN) TAB PO SCH (08:09)
[2018-04-25] MEDS: ENOXAPARIN 30 MG/0.3 ML (LOVENOX) SYR SC SCH ×2 (08:09→20:39)
[2018-04-25] MEDS: oxyCODONE/APAP 5/325MG (PERCOCET 5) TABLET PO PRN ×6 (08:10→20:40)
--- NOTE | 2018-04-25 09:50 | Physical Therapy Daily Note ---
PT Daily Note-Current Subjective Patient agrees to PT. Pain Numeric Pain Scale: 7 Location: Left Location Body Site: Knee Pain Description: Acute Mental Status Patient Orientation: Normal For Age Attachments: IV Transfers Therapy Code Descriptions/Definitions Functional [place] Measure: 0=Not Assessed/NA 4=Minimal Assistance 1=Total Assistance 5=Supervision or Setup 2=Maximal Assistance 6=Modified [place] 3=Moderate Assistance 7=Complete [place] Therapy Quality Codes: 6 Independent with activity with or without an assistive device 5 Patient requires set up or clean up by helper. Patient completes activity by themselves 4 Supervision or touching assist (CGA). [place] provide cues , steadying assist 3 The helper provides less than half the effort to complete the activity 2 The helper provides more than half the effort to complete the activity 1 Dependent. The helper does all the effort to complete an activity 7 Patient refused to complete or attempt activity 9 The patient did not perform the activity before the current illness or injury 88 Not attempted due to Medical conditions or safety concerns Transfers (B, C, W/C) (FIM): 5 Scootin Rollin Supine to/from Sit: 5 Sit to/from Stand: 5 Weight Bearing Left Lower Extremity: Left Weight Bearing/Tolerated Gait Training Gait (FIM): 5 Distance (FIM): 3=150 ft Distance: 175' Gait Level of Assist: 5 Gait Assistive Device: FWW slow, antalgic gait sequence Exercises Supine Ex: Ankle pumps, Quad Set, Heel Slides, Straight leg raise Supine Reps: 15 Seated Therapy Exercises: Long arc quads Standing Reps: 15 Treatments CPM 0-80 degrees with polar pack in place Assessment Patient progressing with treatment plan. PT to increase activity as tolerated by patient. PT Short Term Goals Short Term Goals Time Frame: May 01, 2018 Transfers (B,C,W/C) (FIM): 5 Gait (FIM): 5 Gait Distance Comment: 150' Gait Level of Assist: 5 Gait Assistive Device: FWW PT Plan Treatment/Plan Treatment Plan: Continue Plan of Care Treatment Plan: Bed Mobility, Education, Functional Activity Otilio, Functional Strength, Gait, Safety, Therapeutic Exercise, Transfers Treatment Duration: May 01, 2018 Frequency: 11 times per week Estimated Hrs Per Day: .25 hour per day Patient and/or Family Agrees t: Yes Time/GCodes Time In: 855 Time Out: 924 Total Billed Treatment Time: 29 Total Billed Treatment 1 visit EX 15 min GT 14 min DESIREE,REMI PT Apr 25, 2018 09:50
--- NOTE | 2018-04-25 14:51 | Physical Therapy Daily Note ---
PT Daily Note-Current Subjective Patient agrees to PT. Pain Numeric Pain Scale: 6 Location: Left Location Body Site: Knee Pain Description: Acute Mental Status Patient Orientation: Normal For Age Attachments: IV Transfers Therapy Code Descriptions/Definitions Functional [place] Measure: 0=Not Assessed/NA 4=Minimal Assistance 1=Total Assistance 5=Supervision or Setup 2=Maximal Assistance 6=Modified [place] 3=Moderate Assistance 7=Complete [place] Therapy Quality Codes: 6 Independent with activity with or without an assistive device 5 Patient requires set up or clean up by helper. Patient completes activity by themselves 4 Supervision or touching assist (CGA). [place] provide cues , steadying assist 3 The helper provides less than half the effort to complete the activity 2 The helper provides more than half the effort to complete the activity 1 Dependent. The helper does all the effort to complete an activity 7 Patient refused to complete or attempt activity 9 The patient did not perform the activity before the current illness or injury 88 Not attempted due to Medical conditions or safety concerns Transfers (B, C, W/C) (FIM): 6 Scootin Rollin Supine to/from Sit: 6 Sit to/from Stand: 6 Weight Bearing Left Lower Extremity: Left Weight Bearing/Tolerated Gait Training Gait (FIM): 6 Distance (FIM): 3=150 ft Distance: 200' Gait Level of Assist: 6 Gait Assistive Device: FWW antalgic, functional gait sequence Exercises Supine Ex: Ankle pumps, Quad Set, Heel Slides, Straight leg raise Supine Reps: 15 Seated Therapy Exercises: Long arc quads Seated Reps: 15 Assessment Patient tolerated treatment well and returned to bed. OT present upon completion of treatment. PT Short Term Goals Short Term Goals Time Frame: May 01, 2018 Transfers (B,C,W/C) (FIM): 5 Gait (FIM): 5 Gait Distance Comment: 150' Gait Level of Assist: 5 Gait Assistive Device: FWW PT Plan Treatment/Plan Treatment Plan: Continue Plan of Care Treatment Plan: Bed Mobility, Education, Functional Activity Otilio, Functional Strength, Gait, Safety, Therapeutic Exercise, Transfers Treatment Duration: May 01, 2018 Frequency: 11 times per week Estimated Hrs Per Day: .25 hour per day Patient and/or Family Agrees t: Yes Time/GCodes Time In: 1430 Time Out: 1444 Total Billed Treatment Time: 14 Total Billed Treatment 1 visit FA 14 min REMI RAMÍREZ PT Apr 25, 2018 14:51
--- NOTE | 2018-04-25 15:47 | Occupational Therapy Eval ---
OT Evaluation-General/PLF Medical Diagnosis Admission Date Apr 24, 2018 at 07:00 Medical Diagnosis: left TKA Onset Date: Apr 24, 2018 Therapy Diagnosis Therapy Diagnosis: Decreased ADL skills Height/Weight Height (Feet): 5 Height (Inches): 7.00 Weight (Pounds): 196 Weight (Ounces): 9.0 Precautions Precautions/Isolations: Standard Precautions Safety Interventions: None Weight Bear Status Weight Bearing Restriction: Weight Bearing/Tolerated Referral Physician: Remington Hong Referral Reason: Activity Tolerance, Self Care, Evaluation/Treatment, Strengthening/ROM Medical History Pertinent Medical History: HTN Additional Medical History reflux, cataract excision, Ischemic heart disease. Current History Elective knee replacement. Reviewed History: Yes Social History Home: Single Level Current Living Status: Spouse Entry Into Home: Stairs With Railing Steps Into Home: 3 ADL-Prior Level of Function Therapy Code Descriptions/Definitions Functional [place] Measure: 0=Not Assessed/NA 4=Minimal Assistance 1=Total Assistance 5=Supervision or Setup 2=Maximal Assistance 6=Modified [place] 3=Moderate Assistance 7=Complete [place] Therapy Quality Codes: 6 Independent with activity with or without an assistive device 5 Patient requires set up or clean up by helper. Patient completes activity by themselves 4 Supervision or touching assist (CGA). [place] provide cues , steadying assist 3 The helper provides less than half the effort to complete the activity 2 The helper provides more than half the effort to complete the activity 1 Dependent. The helper does all the effort to complete an activity 7 Patient refused to complete or attempt activity 9 The patient did not perform the activity before the current illness or injury 88 Not attempted due to Medical conditions or safety concerns Functional Abilities and Goals: Independent: Patient completed the activities by him/herself, with or without an assistive device, with no assistance from a helper. Needed Some Help: Patient needed partial assistance from another person to complete activities. Dependent: A helper completed the activities for the patient. Unknown: Not Applicable: ADL PLOF Comments Pt. states that she was independent with all previous ADL skills. Self Care: Independent Functional Cognition: Independent Drive Self: Yes OT Current Status Subjective No pain reported. Appearance Pt. had just got back into bed after PT assist. Agreed to work with OT. Mental Status/Objective Patient Orientation: Person, Place, Time, Situation Attachments: IV Current Glasses/Contacts: Yes Upper Extremity ROM WFL Upper Extremity Strength WFL ADL-Treatment Therapy Code Descriptions/Definitions Functional [place] Measure: 0=Not Assessed/NA 4=Minimal Assistance 1=Total Assistance 5=Supervision or Setup 2=Maximal Assistance 6=Modified [place] 3=Moderate Assistance 7=Complete [place] Therapy Quality Codes: 6 Independent with activity with or without an assistive device 5 Patient requires set up or clean up by helper. Patient completes activity by themselves 4 Supervision or touching assist (CGA). [place] provide cues , steadying assist 3 The helper provides less than half the effort to complete the activity 2 The helper provides more than half the effort to complete the activity 1 Dependent. The helper does all the effort to complete an activity 7 Patient refused to complete or attempt activity 9 The patient did not perform the activity before the current illness or injury 88 Not attempted due to Medical conditions or safety concerns Eating (FIM): 6 Lower Body Dressing (FIM): 5 (Pt. is able to doff/don slipper socks while in bed. Pt. is able to reach feet with LE in bed.) Pt. has just returned to bed. Declines getting up on side of bed at this time, as she was just getting ready to have ice pack and CPM on. Does agree to work with OT at bed level. Pt. declines spongebathing or showering, stating that she spongebathed this morning. Pt. is able to demonstrate ability to doff socks in bed. States that she has been up to the toilet multiple times, and has had no difficulty cleansing self. OT explains purpose of OT and pt. is agreeable with this, but would like to start in the morning. Pt. is able to position self in bed and raise left LE for OT to place and position CPM, SCDs, polar pack, and blankets. All needs are met in room. Education OT Patient Education: Correct positioning, Modified ADL techniques, Progress toward Goal/Update tx plan, Purpose of tx/functional activities, Reviewed precautions, Rehab process, Transfer techniques Teaching Recipient: Patient Teaching Methods: Demonstration, Discussion Response to Teaching: Verbalize Understanding, Return Demonstration OT Short Term Goals Short Term Goals Transfers (B,C,W/C) (FIM): 5 1=Demonstrate adherence to instructed precautions during ADL tasks. 2=Patient will verbalize/demonstrate understanding of assistive devices/ modifications for ADL. 3=Patient will improve strength/tolerance for activity to enable patient to perform ADL's. OT Hl7 Interface Developer Goals Shelter Goals Time Frame: May 02, 2018 Eating (FIM): 6 Grooming(FIM): 6 Bathing(FIM): 6 Upper Body Dressing(FIM): 6 Lower Body Dressing(FIM): 6 Toileting(FIM): 6 Transfers (B,C,W/C) (FIM): 6 Toilet/Commode Transfer(FIM): 6 Shower Transfer(FIM): 5 Additional Goals: 1-Demonstrate ADL Tasks, 2-Verbalize Understanding, 3- ImproveStrength/Otilio 1=Demonstrate adherence to instructed precautions during ADL tasks. 2=Patient will verbalize/demonstrate understanding of assistive devices/ modifications for ADL. 3=Patient will improve strength/tolerance for activity to enable patient to perform ADL's. OT Education/Plan Problem List/Assessment Assessment: Decreased Activ Tolerance, Impaired I ADL's, Impaired Self-Care Skills Discharge Recommendations Plan/Recommendations: Continue POC Therapy D/C Recommendations: Home w/ Family Support Treatment Plan/Plan of Care Treatment,Training & Education: Yes Patient would benefit from OT for education, treatment and training to promote independence in ADL's, mobility, safety and/or upper extremity function for ADL' s. Plan of Care: ADL Retraining, Functional Mobility, UE Funct Exercise/Act Treatment Duration: May 02, 2018 Frequency: 5 times per week Estimated Hrs Per Day: .25 hour per day Agreement: Yes Rehab Potential: Good Time/GCodes Start Time: 14:45 Stop Time: 15:00 Total Time Billed (hr/min): 15 Billed Treatment Time 1, BONNIE MARTINEZ OT Apr 25, 2018 15:47
--- NOTE | 2018-04-25 20:44 | Progress Note (SOAP) ---
Subjective Subjective/Events-last exam Patient doing well this AM. States that she was able to get up with PT with moderate pain. + BM last night Review of Systems Date Seen by Provider: Apr 25, 2018 Time Seen by Provider: 11:45 Pulmonary: No Dyspnea, No Cough Cardiovascular: No: Chest Pain, Palpitations Gastrointestinal: No: Nausea, Vomiting, Abdominal Pain, Diarrhea, Constipation Neurological: Weakness Objective Exam Last Set of Vital Signs Vital Signs Date Time Temp Pulse Resp B/P (MAP) Pulse Ox O2 Delivery O2 Flow Rate FiO2 04/25/18 20:10 99.2 65 18 128/62 (84) 96 Room Air 04/24/18 12:00 2.00 Capillary Refill : I&O Intake and Output 04/25/18 00:00 Intake Total 1950 ml Output Total 0 ml Balance 1950 ml Intake Oral 900 ml IV Total 1050 ml Output Urine Total 0 ml # Voids 2 Daily Weight Change No General: Alert, Oriented X3, Cooperative, No Acute Distress HEENT: Mucous Memb Moist/[place] Lungs: Clear to Auscultation, Normal Air Movement Heart: Regular Rate, No Murmurs Abdomen: Normal Bowel Sounds, Soft, No Tenderness, No Masses Extremities: Other (compression stockings in place) Results/Procedures Lab Laboratory Tests 04/25/18 06:10: Hemoglobin 11.0L, Hematocrit 32L Assessment/Plan Assessment/Plan (1) Osteoarthritis of left knee Status: Chronic Assessment & Plan: - Asked to see Dr Goncalves's patient in medical consultation, patient does not take any medications and declines any medical problems, doing well post op 04/25- Patient will likely do well going home with Clinical Quality Measures DVT/VTE Risk/Contraindication: Risk Factor Score Per Nursin RFS Level Per Nursing on Admit: 4+=Very High YOLI GARNER MD Apr 25, 2018 20:44
[2018-04-26] MEDS: oxyCODONE/APAP 5/325MG (PERCOCET 5) TABLET PO PRN ×7 (00:19→17:09)
[2018-04-26] MEDS: NS IV 1000 ML 1,000 ML IV SCH (00:19)
[2018-04-26 04:00] VITALS: BP 142/66
[2018-04-26] MEDS: MULTIVIT W/MINERALS TAB (THERAGRAN M) PO SCH (05:05)
[2018-04-26 06:12] LABS: HEMOGLOBIN 9.8 G/DL (11.5-16.0)
--- NOTE | 2018-04-26 07:17 | Progress Note-Standard ---
Standard Progress Note Progress Notes/Assess & Plan Date Seen by a Provider: Apr 26, 2018 Time Seen by a Provider: 07:15 Progress/Assessment & Plan post op check no complaints radiographs--HW well positioned without fracture LLE--2 plus DP pulse with brisk cap refill. intact DF and PF of toes and ankle. sensation intact throughout s/p LTKA mobilize as able Final Diagnosis no complaints Vital Signs Date Time Temp Pulse Resp B/P (MAP) Pulse Ox O2 Delivery O2 Flow Rate FiO2 04/26/18 05:59 18 04/26/18 04:00 98.3 65 18 142/66 (91) 93 Room Air 04/25/18 23:55 99.1 64 18 120/77 (91) 93 Room Air 04/25/18 21:00 Room Air 04/25/18 20:10 99.2 65 18 128/62 (84) 96 Room Air 04/25/18 18:36 16 04/25/18 15:30 98.4 69 16 134/61 (85) 96 Room Air 04/25/18 12:00 98.1 63 16 145/65 (91) 96 Room Air 04/25/18 08:55 Room Air 04/25/18 08:00 97.9 66 18 126/91 (103) 97 Room Air I & O 04/26/18 07:00 Intake Total 2920 ml Balance 2920 ml Laboratory Tests Test 04/26/18 06:00 Range/Units Hemoglobin 9.8 L 11.5-16.0 G/DL Hematocrit 29 L 35-52 % LLE--incision clean and dry. No calf tenderness. Neg Benny's s/p LTKA doing well PT/OT DC later today PAZ LOPEZ MD Apr 26, 2018 07:16
[2018-04-26] MEDS ORDERED: morphine INJ 4 MG/ML 1 ML (VIAL/SYRINGE) IVP PRN (07:30)
[2018-04-26 08:00] VITALS: BP 124/76
[2018-04-26] MEDS: SENNA W/DOCUSATE (SENOKOT S) TABLET PO SCH (08:14)
[2018-04-26] MEDS: ASPIRIN E.C. 81 MG (ECOTRIN) TAB PO SCH (08:14)
[2018-04-26] MEDS: ENOXAPARIN 30 MG/0.3 ML (LOVENOX) SYR SC SCH (08:15)
--- NOTE | 2018-04-26 09:37 | Physical Therapy Daily Note ---
PT Daily Note-Current Subjective Patient agrees to PT. Has increase c/o left knee pain with meds issued. Pain Numeric Pain Scale: 8 Location: Left Location Body Site: Knee Pain Description: Acute Mental Status Patient Orientation: Normal For Age Transfers Therapy Code Descriptions/Definitions Functional [place] Measure: 0=Not Assessed/NA 4=Minimal Assistance 1=Total Assistance 5=Supervision or Setup 2=Maximal Assistance 6=Modified [place] 3=Moderate Assistance 7=Complete [place] Therapy Quality Codes: 6 Independent with activity with or without an assistive device 5 Patient requires set up or clean up by helper. Patient completes activity by themselves 4 Supervision or touching assist (CGA). [place] provide cues , steadying assist 3 The helper provides less than half the effort to complete the activity 2 The helper provides more than half the effort to complete the activity 1 Dependent. The helper does all the effort to complete an activity 7 Patient refused to complete or attempt activity 9 The patient did not perform the activity before the current illness or injury 88 Not attempted due to Medical conditions or safety concerns Transfers (B, C, W/C) (FIM): 6 Scootin Rollin Supine to/from Sit: 6 Weight Bearing Left Lower Extremity: Left Weight Bearing/Tolerated Gait Training Gait (FIM): 6 Distance (FIM): 3=150 ft Distance: 250' x 2 Gait Level of Assist: 6 Gait Assistive Device: FWW steady, antalgic Stair Training Stair Training: Handrails/: 1 handrail, uses walker Stairs (FIM): 2 #of Steps: 3 Stairs: Pattern: Step to Level of Assist: 5 Exercises Supine Ex: Ankle pumps, Quad Set, Heel Slides, Straight leg raise Supine Reps: 15 Seated Therapy Exercises: Long arc quads Seated Reps: 15 Assessment Patient tolerated treatment well and will dismiss to home on this date. PT Short Term Goals Short Term Goals Time Frame: May 01, 2018 Transfers (B,C,W/C) (FIM): 5 Gait (FIM): 5 Gait Distance Comment: 150' Gait Level of Assist: 5 Gait Assistive Device: FWW PT Plan Treatment/Plan Treatment Plan: Continue Plan of Care Treatment Plan: Bed Mobility, Education, Functional Activity Otilio, Functional Strength, Gait, Safety, Therapeutic Exercise, Transfers Treatment Duration: May 01, 2018 Frequency: 11 times per week Estimated Hrs Per Day: .25 hour per day Patient and/or Family Agrees t: Yes Time/GCodes Time In: 901 Time Out: 924 Total Billed Treatment Time: 23 Total Billed Treatment 1 visit EX 13 min FA 10 min REMI RAMÍREZ PT Apr 26, 2018 09:37
[2018-04-26 12:00] VITALS: BP 131/70
--- NOTE | 2018-04-26 13:47 | Physical Therapy Daily Note ---
PT Daily Note-Current Subjective Patient is very motivated to dismiss to home on this date. Pain Numeric Pain Scale: 5-Moderate Pain Location: Left Location Body Site: Knee Pain Description: Acute Mental Status Patient Orientation: Normal For Age Transfers Therapy Code Descriptions/Definitions Functional [place] Measure: 0=Not Assessed/NA 4=Minimal Assistance 1=Total Assistance 5=Supervision or Setup 2=Maximal Assistance 6=Modified [place] 3=Moderate Assistance 7=Complete [place] Therapy Quality Codes: 6 Independent with activity with or without an assistive device 5 Patient requires set up or clean up by helper. Patient completes activity by themselves 4 Supervision or touching assist (CGA). Butler provide cues , steadying assist 3 The helper provides less than half the effort to complete the activity 2 The helper provides more than half the effort to complete the activity 1 Dependent. The helper does all the effort to complete an activity 7 Patient refused to complete or attempt activity 9 The patient did not perform the activity before the current illness or injury 88 Not attempted due to Medical conditions or safety concerns Transfers (B, C, W/C) (FIM): 6 Scootin Rollin Supine to/from Sit: 6 Sit to/from Stand: 6 Weight Bearing Left Lower Extremity: Left Weight Bearing/Tolerated Gait Training Gait (FIM): 6 Distance (FIM): 3=150 ft Distance: 350' Gait Level of Assist: 6 Gait Assistive Device: FWW slow and antalgic Exercises Standing: Heel/toe raises, 3 way Ex=Flex, Abd, Ext Standing Reps: 15 Treatments CPM 0-90 degrees with polar pack in place Assessment Patient has attained all functional goals and will dismiss to home this afternoon with spouse and home health intervention. Patient has been issued HEP via physician in preop and voiced understanding with complying with continued exercise program. PT Short Term Goals Short Term Goals Time Frame: May 01, 2018 Transfers (B,C,W/C) (FIM): 5 Gait (FIM): 5 Gait Distance Comment: 150' Gait Level of Assist: 5 Gait Assistive Device: FWW PT Plan Treatment/Plan Treatment Plan: Discontinue PT, goals met Treatment Plan: Bed Mobility, Education, Functional Activity Otilio, Functional Strength, Gait, Safety, Therapeutic Exercise, Transfers Treatment Duration: May 01, 2018 Frequency: 11 times per week Estimated Hrs Per Day: .25 hour per day Patient and/or Family Agrees t: Yes Time/GCodes Time In: 1315 Time Out: 1330 Total Billed Treatment Time: 15 Total Billed Treatment 1 visit FA 15 min REMI RAMÍREZ PT Apr 26, 2018 13:47
--- NOTE | 2018-04-26 14:57 | Occ Therapy Progress Note ---
Therapy Progress Note Pt in room dressing when therapist arrives. Pt has donned pants and then donned shirt without assist. Pt states she has been getting up to restroom without difficulty and states she was able to do sponge bath this morning. Pt states she will be going home today with spouse. Has no questions or concerns at this time. Pt in bed with needs met. 1, visit SPENSER SCHULZ OT Apr 26, 2018 14:57
[2018-04-26 16:00] VITALS: BP 132/68
[2018-04-26 17:35] VITALS: BP 132/68
--- NOTE | 2018-04-27 04:29 | DISCHARGE SUMMARY ---
DATE OF SERVICE: DIAGNOSES: 1. Left knee primary osteoarthritis. 2. History of reflux. PROCEDURE: Left total knee arthroplasty. HOSPITAL COURSE: The patient is a 72-year-old female who was admitted the day of left total knee arthroplasty. She underwent this without complications. At the time of discharge, her wound was clean and dry. She cleared physical therapy. She was tolerating diet well and tolerating pain with oral pain medication. CONDITION ON DISCHARGE: Good. DISCHARGE DIET: Regular. FOLLOWUP: Followup is in three weeks. Home physical therapy has been arranged. Activities are weightbearing as tolerated with walker with left lower extremity range of motion exercises. DISCHARGE MEDICATIONS: Home medications, Percocet as needed for pain and aspirin. Job ID: [id number] DocumentID: [id number] Dictated Date: 04/26/2018 07:11:28 Old Coin Dealer Date: 04/27/2018 04:28:49 Dictated By: PAZ LOPEZ MD
== END 2018-04-26 17:35 | disposition home health service (06) | DRG 470 ==
LOC: 4TH 07:00 → SURG 07:01 → 4TH 12:00
PROVIDERS: ADMIT Orthopaedic Surgery; ATTEND Orthopaedic Surgery
PROC: 0SRD0J9 Replacement of Left Knee Joint with Synthetic Substitute, Cemented, Open Approach (ICD-10-PCS; principal; 2018-04-24 09:29)
DX: M17.12 Unilateral primary osteoarthritis, left knee (principal); K21.9 Gastro-esophageal reflux disease without esophagitis; Z87.891 Personal history of nicotine dependence
CPT/HCPCS: 36415; 73560; 85014; 85018; 86850; 86900; 86901; 94664

== ENCOUNTER 2018-06-17 08:19 | Outpatient (RCR) | payer MEDICARE, OTHER ==
[~2018-06-17 08:19] MED LIST changes: +OXYC1TAB87 PO
== END 2018-06-27 14:10 | disposition home or self-care (01) ==
PROVIDERS: ATTEND Orthopaedic Surgery
DX: Z47.1 Aftercare following joint replacement surgery (principal); Z96.651 Presence of right artificial knee joint

== ENCOUNTER 2018-10-16 13:33 | Outpatient (CLI) | payer MEDICARE, OTHER ==
[~2018-10-16] VITALS: Ht 170.2 cm; Wt 87.1 kg
[2018-10-16 13:48] VITALS: BP 126/59
[2018-10-16 14:27] LABS: BILIRUBIN,URINE NEGATIVE (NEGATIVE); CLARITY,URINE CLEAR; COLOR,URINE YELLOW; GLUCOSE, URINE (UA) NEGATIVE (NEGATIVE); KETONES,URINE NEGATIVE (NEGATIVE); LEUKOCYTE ESTERASE ,URINE 3+ (NEGATIVE); NITRITE,URINE NEGATIVE (NEGATIVE); PH,URINE 6 (5-9); PROTEIN,URINE NEGATIVE (NEGATIVE); UROBILINOGEN,URINE NORMAL (NORMAL)
[2018-10-16 14:27] LABS: BASOPHILS % (AUTO) 1 % (0-10); EOSINOPHILS % (AUTO) 0 % (0-10); HEMATOCRIT 38 % (35-52); HEMOGLOBIN 12.9 G/DL (11.5-16.0); LYMPHOCYTES # (AUTO) 1.2 X 10^3 (1.0-4.0); LYMPHOCYTES % (AUTO) 17 % (12-44); MEAN CORPUSCULAR HEMOGLOBIN 30 PG (25-34); MEAN CORPUSCULAR HGB CONC 34 G/DL (32-36); MEAN CORPUSCULAR VOLUME 87 FL (80-99); MONOCYTES # (AUTO) 0.4 X 10^3 (0.0-1.0); MONOCYTES % (AUTO) 5 % (0-12); NEUTROPHILS # (AUTO) 5.3 X 10^3 (1.8-7.8); NEUTROPHILS % (AUTO) 77 % (42-75); PLATELET COUNT 234 10^3/uL (130-400); RED CELL DISTRIBUTION WIDTH 13.8 % (10.0-14.5)
[2018-10-16 14:35] LABS: BACTERIA,URINE TRACE /HPF
[2018-10-16 14:38] LABS: INR 0.9 (0.8-1.4); PROTHROMBIN TIME PATIENT 12.9 SEC (12.2-14.7)
[2018-10-16 14:47] LABS: ALANINE AMINOTRANSFERASE 21 U/L (0-55); ALBUMIN 4.3 GM/DL (3.2-4.5); ALKALINE PHOSPHATASE 68 U/L (40-136); BILIRUBIN,TOTAL 0.4 MG/DL (0.1-1.0); BUN/CREATININE RATIO 11; CALCIUM 9.6 MG/DL (8.5-10.1); CARBON DIOXIDE 23 MMOL/L (21-32); CHLORIDE 104 MMOL/L (98-107); CREATININE SERUM 0.87 MG/DL (0.60-1.30); GFR ESTIMATED > 60; GLUCOSE 107 MG/DL (70-105); POTASSIUM 3.4 MMOL/L (3.6-5.0); SODIUM 137 MMOL/L (135-145); TOTAL PROTEIN 7.4 GM/DL (6.4-8.2)
[2018-10-16 14:53] LABS: ERYTHROCYTE SEDIMENTATION RATE 12 MM/HR (0-30)
== END 2018-10-16 15:30 | disposition home or self-care (01) ==
LOC: PREOP 13:33
PROVIDERS: ATTEND Orthopaedic Surgery
DX: Z01.812 Encounter for preprocedural laboratory examination (principal); Z11.2 Encounter for screening for other bacterial diseases; M17.11 Unilateral primary osteoarthritis, right knee; R53.83 Other fatigue; R82.90 Unspecified abnormal findings in urine
CPT/HCPCS: 36415; 80053; 81000; 85025; 85610; 85652; 86850; 86900; 86901; 87081; 87088

== ENCOUNTER 2018-10-23 08:01 | Inpatient (IN) | payer MEDICARE, OTHER ==
--- NOTE | 2018-10-14 09:48 | HISTORY AND PHYSICAL ---
DATE OF SERVICE: 10/23/2018 DATE OF ADMISSION: 10/23/2018. This will be for inpatient admission. Date of service, date of surgery, date of admission 10/23/2018 for right total knee arthroplasty. Of note, the patient will require regular inpatient admission due to pain management issues and pain control as well as gait abnormalities, weakness and imbalance. HISTORY OF PRESENT ILLNESS: The patient is a 73-year-old female with progressively worsening right knee pain. Radiographs reveal severe patellofemoral arthrosis with moderate medial arthrosis. She has undergone treatment with injections, rest and activity modifications without relief and due to functional impairment and failure to improve with conservative measures, the patient has elected to proceed with surgical intervention. REVIEW OF SYSTEMS: No chest pain, no shortness of breath, no dysuria. PAST MEDICAL HISTORY: Reflux and dry eyes. PAST SURGICAL HISTORY: Tonsillectomy, cataracts, left total knee arthroplasty. FAMILY HISTORY: Significant for hypertension, ischemic heart disease. PRIMARY CARE PROVIDER: [facility]. MEDICATIONS: Omeprazole. ALLERGIES: No known drug allergies. SOCIAL HISTORY: The patient denies alcohol and tobacco use. PHYSICAL EXAMINATION: GENERAL: The patient is a well-developed, well-nourished, in no acute distress. HEENT: Normocephalic, atraumatic. Pupils are equal, round and reactive to light. Oropharynx is clear. NECK: Supple, no lymphadenopathy. LUNGS: Clear to auscultation bilaterally. HEART: Regular rate and rhythm. ABDOMEN: Soft, nontender, nondistended. EXTREMITIES: The right knee demonstrates marked patellofemoral crepitus with a moderate effusion. She has pain with patellar loading. She does track laterally at her patellofemoral joint, but there is no subluxation noted. No varus valgus laxity. Negative anterior and posterior drawer. Range of motion is 0/0/135. The patient ambulates with an antalgic gait on the right. IMPRESSION: Severe right knee osteoarthritis. PLAN: Right total knee arthroplasty. The risks, benefits, options, ramifications and recovery were discussed at length with the patient. She understands and wishes to proceed. This will be for inpatient admission on 10/23/2018. Job ID: [id number] DocumentID: [id number] Dictated Date: 10/14/2018 08:08:02 Social Work Lecturer Date: 10/14/2018 09:48:03 Dictated By: PAZ LOPEZ MD
--- NOTE | 2018-10-16 14:58 | NUR ---
MED REC SENT OVER FROM PREOP FOR VERIFICATION HOWEVER ONLY 3 MEDS ENTERED AND ARE OTC. I DID NOT EDIT THE MED REC OR RE INTERVIEW THE PATIENT AT THIS TIME.
[~2018-10-23] VITALS: Ht 170.2 cm; Wt 87.1 kg
[2018-10-23] VITALS (11 sets, daily range): BP systolic 117–169; BP diastolic 65–94
--- OUTSIDE RECORDS SUMMARY | 2018-10-23 08:05 | XMS REPORT ---
Author Author Migration, Doctor Organization [facility] Address Unknown Phone Unavailable Care Team Providers Care Plastic Production Machine Setter Name Role Phone Migration, Doctor Unavailable Unavailable PROBLEMS Type Condition ICD9-CM Code YTU26-SV Code Onset Dates Condition Status SNOMED Code Problem Female bladder prolapse N81.10 Active 930315633 Problem Osteoarthritis of both knees, unspecified osteoarthritis type M17.0 Active 568495456 Problem Gastroesophageal reflux disease without esophagitis K21.9 Active 052387651 ALLERGIES No Information ENCOUNTERS Encounter Location Date Diagnosis [place] [id number] [place] [address] September, [facility] [id number] [place] [address] Apr, [facility] [id number] [place] [address] Apr, [facility] [id number] [place] [address] Apr, [place] [id number] [id number] Mar, [facility] [id number] [place] [address] Mar, [facility] [id number] [place] [address] Mar, [facility] [id number] [place] [address] 24 Jan, 2018 Gastroesophageal reflux disease without esophagitis K21.9 [facility] [id number] [place] [address] Jan, Left wrist tendonitis M77.8 and Callus of foot L84 [facility] [id number] [place] [address] 31 Nov, 2017 Gastroesophageal reflux disease without esophagitis K21.9 ; Screening for malignant neoplasm of colon Z12.11 ; High risk for hip fracture Z91.89 ; Osteoarthritis of both knees, unspecified osteoarthritis type M17.0 and Routine medical exam Z00.00 [facility] [id number] [place] [address] Nov, [facility] [id number] [place] [address] Mar, [facility] [id number] [place] [address] Jan, Female bladder prolapse N81.10 [facility] [id number] [place] [address] Jan, [facility] [id number] [place] [address] September, Bronchitis J40 and History of recent travel Z78.9 [facility] [id number] [place] [address] Oct, [facility] [id number] [place] [address] Oct, [facility] [id number] [place] [address] Aug, Routine medical exam Z00.00 and Gastroesophageal reflux disease without esophagitis K21.9 [facility] [id number] [place] [address] May, [facility] [id number] [place] [address] September, [facility] [id number] [place] [address] September, [facility] [id number] [place] [address] September, Osteoarthritis 715.90 [facility] [address], [place] [address] September, [facility] [address], [place] [address] Aug, [facility] [address], [place] [address] Aug, [facility] [address], [place] [address] Jun, [facility] [address], [place] [address] Jun, [facility] [address], [place] [address] Jan, [facility] [address], [place] [address] Jan, [facility] [address], [place] [address] Dec, [facility] [address], [place] [address] Dec, [facility] [address], [place] [address] Oct, [facility] [id number], [place] [address] Oct, [facility] [id number], [place] [address] September, [facility] [id number], [place] [address] September, IMMUNIZATIONS No Known Immunizations SOCIAL HISTORY Never Assessed REASON FOR VISIT EMR-[facility] PLAN OF CARE VITAL SIGNS MEDICATIONS Unknown Medications RESULTS No Results PROCEDURES No Known procedures INSTRUCTIONS MEDICATIONS ADMINISTERED No Known Medications MEDICAL (GENERAL) HISTORY Type Description Date Medical History acid reflux Medical History Arthritis Surgical History tonsillectomy Surgical History wisdom teeth extraction Surgical History Bladder Suspension Surgery 05/2016 Hospitalization History childbirth only
--- OUTSIDE RECORDS SUMMARY | 2018-10-23 08:05 | XMS REPORT ---
Author Author Migration, Doctor Organization [facility] Address Unknown Phone Unavailable Care Team Providers Care Distribution Operations Manager Name Role Phone Migration, Doctor Unavailable Unavailable PROBLEMS Type Condition ICD9-CM Code [id number] Code Onset Dates Condition Status SNOMED Code Problem Female bladder prolapse N81.10 Active 157140177 Problem Osteoarthritis of both knees, unspecified osteoarthritis type M17.0 Active 821093837 Problem Gastroesophageal reflux disease without esophagitis K21.9 Active 918235328 ALLERGIES No Information ENCOUNTERS Encounter Location Date Diagnosis [place] [id number] [place] [address] Apr, [place] [id number] [place] [address] Apr, [place] [id number] [place] [address] Apr, [address] [id number] Mar, [place] [id number] [place] [address] Mar, [place] [id number] [place] [address] Mar, [place] [id number] [place] [address] Jan, Gastroesophageal reflux disease without esophagitis K21.9 [place] [id number] [place] [address] Jan, Left wrist tendonitis M77.8 and Callus of foot L84 [place] [id number] [place] [address] Nov, Gastroesophageal reflux disease without esophagitis K21.9 ; Screening for malignant neoplasm of colon Z12.11 ; High risk for hip fracture Z91.89 ; Osteoarthritis of both knees, unspecified osteoarthritis type M17.0 and Routine medical exam Z00.00 [facility] [id number] [place] [address] 12 Nov, 2017 [facility] [id number] [place] [address] Mar, [facility] [id number] [place] [address] Jan, Female bladder prolapse N81.10 [facility] [id number] [place] [address] Jan, [facility] [id number] [place] [address] September, Bronchitis J40 and History of recent travel Z78.9 [facility] [id number] [place] [address] 07 Oct, 2015 [facility] [id number] [place] [address] Oct, [facility] [id number] [place] [address] Aug, Routine medical exam Z00.00 and Gastroesophageal reflux disease without esophagitis K21.9 [facility] [id number] [place] [address] May, [facility] [id number] [place] [address] September, [facility] [id number] [place] [address] September, [facility] [id number] [place] [address] September, Osteoarthritis 715.90 [facility] [id number] [place] [address] September, [facility] [address], [place] [address] Aug, [facility] [address], [place] [address] Aug, [facility] [address], [place] [address] Jun, [facility] [address], [place] [address] Jun, [facility] [address], [place] [address] Jan, [facility] [address], [place] [address] Jan, [facility] [address], [place] [address] Dec, [facility] [address], [place] [address] Dec, [facility] [address], [place] [address] Oct, [facility] [address], [place] [address] Oct, [facility] [address], [place] [address] September, [facility] [id number], [place] [address] September, IMMUNIZATIONS No Known Immunizations SOCIAL HISTORY Never Assessed REASON FOR VISIT EMR-[facility] PLAN OF CARE VITAL SIGNS MEDICATIONS Medication Instructions Dosage Frequency Start Date End Date Duration Status Zithromax Z-Chun 250 mg 2 tablet by Oral route 1 time per day for 1 days then take 1 tab daily on days 2-5 Dec, Active Restasis 0.05 % instill 1 drop into affected eye(s) by ophthalmic route 2 times per day Jan, Active RESULTS No Results PROCEDURES No Known procedures INSTRUCTIONS MEDICATIONS ADMINISTERED No Known Medications MEDICAL (GENERAL) HISTORY Type Description Date Medical History acid reflux Medical History Arthritis Surgical History tonsillectomy Surgical History wisdom teeth extraction Surgical History Bladder Suspension Surgery 05/2016 Hospitalization History childbirth only
--- OUTSIDE RECORDS SUMMARY | 2018-10-23 08:05 | XMS REPORT ---
Author Author YOLI GARNER [facility] Address [address] [place] [address] Care Team Providers Care Cogeneration Operator Name Role Phone YOLI GARNER Unavailable PROBLEMS Type Condition ICD9-CM Code XMF99-FX Code Onset Dates Condition Status SNOMED Code Problem Osteoarthritis of both knees, unspecified osteoarthritis type M17.0 Active 562431291 Problem Female bladder prolapse N81.10 Active 310694324 Problem Gastroesophageal reflux disease without esophagitis K21.9 Active 485014088 ALLERGIES No Information ENCOUNTERS Encounter Location Date Diagnosis [facility] [address] [address] May, [facility] [address] [place] [address] Apr, [facility] [address] [place] [address] Apr, [facility] [id number] [place] [address] Apr, [facility] [address] [address] Mar, [address] [id number] [id number] Mar, [facility] [address] [address] Mar, [facility] [address] [place] [address] Mar, [facility] [address] [address] Jan, Gastroesophageal reflux disease without esophagitis K21.9 [facility] [id number] [place] [address] 17 Jan, 2018 Left wrist tendonitis M77.8 and Callus of foot L84 [facility] [id number] [place] [address] Nov, Gastroesophageal reflux disease without esophagitis K21.9 ; Screening for malignant neoplasm of colon Z12.11 ; High risk for hip fracture Z91.89 ; Osteoarthritis of both knees, unspecified osteoarthritis type M17.0 and Routine medical exam Z00.00 [facility] [id number] [place] [address] Nov, [facility] [id number] [place] [address] Mar, [place] [address] [address] Jan, Female bladder prolapse N81.10 [facility] [id number] [place] [address] Jan, [facility] [address] [address] September, Bronchitis J40 and History of recent travel Z78.9 [place] [id number] [place] [address] 07 Oct, 2015 [facility] [id number] [place] [address] Oct, [facility] [id number] [place] [address] Aug, Routine medical exam Z00.00 and Gastroesophageal reflux disease without esophagitis K21.9 [facility] [id number] [place] [address] May, [facility] [id number] [place] [address] September, [facility] [address] [place] [address] September, [facility] [address] [address] September, Osteoarthritis 715.90 [facility] [address] [address] September, [facility] [address] [address] Aug, [facility] [address] [address] Aug, [facility] [address] [address] Jun, [facility] [address] [address] Jun, [facility] [address] [address] Jan, [facility] [id number] [address] Jan, [facility] [address] [address] Dec, [facility] [id number] [address] Dec, [facility] [id number] [address] Oct, [facility] [id number] [address] Oct, [facility] [address] [address] September, [facility] [id number] [address] September, IMMUNIZATIONS No Known Immunizations SOCIAL HISTORY Never Assessed REASON FOR VISIT Hospital discharge PLAN OF CARE VITAL SIGNS MEDICATIONS Medication Instructions Dosage Frequency Start Date End Date Duration Status Oxycodone-Acetaminophen 5-325 MG Orally every 4 hrs 1 tablet as needed 4h Active Restasis 0.05 % instill 1 drop into affected eye(s) by ophthalmic route 2 times per day Jan, Active Omeprazole 20 mg Orally Once a day 1 capsule 24h 60 Active Calcium + D3 600-200 MG-UNIT Orally Once a day 1 tablet with a meal 24h 30 day(s) Active Ibuprofen 200 MG Orally PRN 2 tablets with food or milk as needed Active RESULTS No Results PROCEDURES No Known procedures INSTRUCTIONS MEDICATIONS ADMINISTERED No Known Medications MEDICAL (GENERAL) HISTORY Type Description Date Medical History acid reflux Medical History Arthritis Surgical History tonsillectomy Surgical History wisdom teeth extraction Surgical History Bladder Suspension Surgery 05/2016 Hospitalization History childbirth only
--- OUTSIDE RECORDS SUMMARY | 2018-10-23 08:06 | XMS REPORT | Continuity of Care Document ---
Author Organization Unknown Address Unknown Allergies There is no data. Medications There is no data. Problems Date Dx Coded Attending Type Code Diagnosis Diagnosed By 09/29/2013 MARY CARRASCO DO K 375.15 TEAR FILM INSUFFICIENCY UNSPECIFIED 09/29/2013 CARRASCO DO MARY K 530.81 GERD 09/29/2013 CARRASCO DO MARY K V70.0 ROUTINE GENERAL MEDICAL EXAMINATION AT A HEALTH CARE FACILITY 09/29/2013 MADL MERCHANDISE EXECUTIVE, WILEY L 375.15 TEAR FILM INSUFFICIENCY UNSPECIFIED 09/29/2013 MADL MERCHANDISE EXECUTIVE, WILEY L 530.81 GERD 09/29/2013 MADL MERCHANDISE EXECUTIVE, WILEY L V70.0 ROUTINE GENERAL MEDICAL EXAMINATION AT A HEALTH CARE FACILITY 09/29/2013 MADL MERCHANDISE EXECUTIVE, WILEY L 375.15 TEAR FILM INSUFFICIENCY UNSPECIFIED 09/29/2013 MADL MERCHANDISE EXECUTIVE, WILEY L 530.81 GERD 09/29/2013 MADL MERCHANDISE EXECUTIVE, WILEY L V70.0 ROUTINE GENERAL MEDICAL EXAMINATION AT A HEALTH CARE FACILITY 09/07/2014 MADL MERCHANDISE EXECUTIVE, WLIEY L 719.46 PAIN IN JOINT INVOLVING LOWER LEG 09/07/2014 MADL MERCHANDISE EXECUTIVE, WILEY L 719.46 PAIN IN JOINT INVOLVING LOWER LEG Procedures Code [place] [address] XRAY KNEE LEFT 3 VIEWS 09/07/2014 ORTHOPEDITA HUGO 09/07/2014 Results There is no data. Encounters ACCT No. Visit Date/Time Discharge Status Pt. Type Provider Facility Loc./Unit Complaint [id number] 09/07/2014 11:18:00 09/07/2014 23:59:59 CLS Outpatient MADL MERCHANDISE EXECUTIVEJAIME HinesWILEY L [id number] 09/07/2014 11:18:00 09/07/2014 23:59:59 CLS Outpatient MADL MERCHANDISE EXECUTIVE WILEY L [id number] 09/29/2013 16:55:00 09/29/2013 23:59:59 [place] [id number] 09/25/2018 09:40:00 09/25/2018 23:59:59 CLS Outpatient PATRIZIA KAMARA, RICKEY Wilkerson [facility]
[2018-10-23] MEDS ORDERED: MIDAZOLAM 2 MG/2 ML (VERSED) VIAL ONE (08:27)
[2018-10-23] MEDS: LACTATED RINGERS 1,000 ML IV PRN ×2 (08:30→10:45)
[2018-10-23] MEDS ORDERED: SEVOFLURANE (ULTANE) 15 ML INHAL SOLN ONE (08:35)
[2018-10-23] MEDS ORDERED: BUPIVACAINE 0.5% 30 ML (SENSORCAINE) VIAL ONE (08:35)
[2018-10-23] MEDS ORDERED: proPOfol 200 MG/20 ML (DIPRIVAN) VIAL IV ONE (08:35)
[2018-10-23] MEDS ORDERED: ONDANSETRON 4 MG/2 ML (SDV) Z0FRAN ONE (08:35)
[2018-10-23] MEDS ORDERED: GLYCOPYRROLATE 0.2 MG/ML (ROBINUL) 2 ML VIAL ONE (08:35)
[2018-10-23] MEDS ORDERED: LIDOCAINE PF 2% 5 ML (XYLOCAINE) VIAL ONE (08:35)
[2018-10-23] MEDS ORDERED: NEOSTIGMINE 1 MG/ML 5 ML SYRINGE ONE (08:35)
[2018-10-23] MEDS ORDERED: ROCURONIUM 10 MG/ML 5 ML SYRINGE IV ONE (08:35)
[2018-10-23] MEDS ORDERED: fentaNYL INJECTION 100 MCG/2 ML AMP ONE (08:35)
[2018-10-23] MEDS ORDERED: CATHETER FLUSH 10 ML SYR IV PRN (08:45)
[2018-10-23] MEDS ORDERED: CEFUROXIME INJECTION 1,500 MG in WATER (STERILE) FOR INJECTION 15 ML IV ONE (08:45)
[2018-10-23] MEDS ORDERED: diphenhydrAMINE 50 MG/ML INJ (BENADRYL) IVP PRN (09:15)
[2018-10-23] MEDS ORDERED: ONDANSETRON 4 MG/2 ML (SDV) Z0FRAN IVP PRN ×2 (09:15→11:15)
[2018-10-23] MEDS ORDERED: INTRA-ARTICULAR IU ONE ×5 (09:15)
[2018-10-23] MEDS ORDERED: ACETAMINOPHEN 325 MG TABLET PO PRN (09:15)
--- NOTE | 2018-10-23 09:18 | Progress Note-Post Operative ---
Post-Operative Progess Note Surgeon (s)/Automation Driver (s) Surgeon PAZ LOPEZ MD Automation Driver: Remington Moon Pre-Operative Diagnosis right knee primary osteoarthritis Post-Operative Diagnosis right knee primary osteoarthritis Procedure & Operative Findings Date of Procedure 10/23/18 Procedure Performed/Findings right total knee arthroplasty Anesthesia Type GETA Estimated Blood Loss Estimated blood loss (mL): minimal Specimens/Packing Specimens Removed none Packing: none PAZ LOPEZ MD Oct 23, 2018 09:18
--- NOTE | 2018-10-23 09:18 | Progress Note-Pre Operative ---
Pre-Operative Progress Note H&P Reviewed The H&P was reviewed, patient examined and no changes noted. Date Seen by Provider: Oct 23, 2018 Time Seen by Provider: :17 Date H&P Reviewed: Oct 23, 2018 Time H&P Reviewed: :17 Pre-Operative Diagnosis: right knee primary osteoarthritis PAZ LOPEZ MD Oct 23, 2018 09:18
[2018-10-23] MEDS ORDERED: OXYC1TAB87 PO (09:19)
--- NOTE | 2018-10-23 09:21 | D/C HH Face to Face Order ---
D/C Face to Face Orders Instructions for Patient [facility], Patient Instructions/FollowUp: three weeks Physician to follow Patient: three weeks Discharge Diet for Home: No Restrictions Patient Data-Allergies,Ht & Wt Patient Allergies: Coded Allergies: No Known Drug Allergies (Unverified , 04/24/18) Height (Feet): 5 Height (Inches): 7.00 Weight (Pounds): 192 Weight (Ounces): 2.0 Home Health Need/Face to Face Date of Face to Face: Oct 23, 2018 Clinical Findings: Instability, Muscle weakness, Pain with ambulation, Unsteady gait I have seen Pt [id number]: Yes Discharged To: Home Diagnosis/Conditions: right total knee arthroplasty Patient is Homebound due to: Payton fall risk due to instabilty, Muscle weakness, Pain w/ambulation Homebound Status Due to the above stated illness, injury or surgical procedure (medical condit ion or diagnosis) and associated clinical findings, the patient is homebound because of his/her inability to leave home except with aid of a supportive device and/or person AND leaving the home requires a considerable and taxing effort or is medically contraindicated. Pt req the following assistanc: [facility] Nursing Orders Home Health Services Order: Physical Therapy-Evaluate & Treat DC right knee shay and apply steri strips 11/06/18 ok to start PT on Sunday Therapy Orders Therapy Orders: Physical Therapy, PT to assess for OT Therapy Specific Orders: Eval assistive deivces, Gait training, Increase strength/endurance, Provider maintenance therapy, Restore ROM Certify Stmt I certify that this patient is under my care and that I, a nurse practitioner or a physician; a bilingual office assistant working with me, had a face to face encounter that - meets the physician face to face encounter requirements with this patient as dated. PAZ LOPEZ MD Oct 23, 2018 09:21
[2018-10-23] MEDS ORDERED: morphine PCA 100 MG/100 ML BAG IV PRN (09:55)
[2018-10-23] MEDS ORDERED: morphine INJ 10 MG/ML 1ML (SYR OR VIAL) IVP ONE (11:15)
[2018-10-23] MEDS ORDERED: MEPERIDINE (DEMEROL) INJ 50 MG/ML IVP ONE (11:15)
[2018-10-23] MEDS ORDERED: morphine INJ 10 MG/ML 1ML (SYR OR VIAL) ONE (11:16)
--- NOTE | 2018-10-23 11:55 | NUR ---
SHARAD WOOTEN admitted to room 420-1, with an admitting diagnosis of RIGHT TOTAL KNEE REPLACEMENT, on 10/23/18 from SURGERY via [facility], accompanied by STAFF. SHARAD WOOTEN introduced to surroundings, call light, bed controls, phone, TV, temperature control, lights, meal times, smoking policy, visitor policy, side rail policy, bathrooms and showers. Patient Rights given to patient in the handbook. SHARAD WOOTEN verbalizes understanding that [facility] is not responsible for the loss or damage to any personal effects or valuables that are kept in the patients posession during their hospitalization. The following Patient Care Plans were discussed with the PATIENT: Discharge Planning, KNOWLEDGE, PAIN, AND MOBILITY. SHARAD WOOTEN verbalizes understanding of Interdisciplinary Patient Education.
--- NOTE | 2018-10-23 12:05 | Progress Note-Standard ---
Standard Progress Note Progress Notes/Assess & Plan Date Seen by a Provider: Oct 23, 2018 Time Seen by a Provider: 12:03 Progress/Assessment & Plan post op check no complaints Radiographs--HW well positioned without fracture RLE-2 plus DP pulse with brisk cap refill. intact DF and PF of toes and ankle. sensation intact throughout s/p RTKA mobilize as able PAZ LOPEZ MD Oct 23, 2018 12:05
[2018-10-23] MEDS ORDERED: NS IV 1000 ML 1,000 ML ONE (12:12)
[2018-10-23] MEDS ORDERED: morphine PCA 100 MG/100 ML BAG IV ONE (12:13)
--- NOTE | 2018-10-23 12:23 | Diagnostic Imaging Report ---
Right knee knee at 11:14. Indication: Postop. AP and lateral views were obtained. There are no prior studies available for comparison. There is a total knee prosthesis in place. The prosthetic components appear to be in good position. There is no fracture or acute bony abnormality noted. There is gas in the soft tissues about the knee joint and there are skin shay along the anterior aspect of the knee joint. Impression: Stable postoperative right knee. Dictated by: Dictated on workstation # [id number]
[2018-10-23] MEDS: NS IV 1000 ML 1,000 ML IV SCH (12:43)
--- NOTE | 2018-10-23 14:41 | Physical Therapy Evaluation ---
PT Evaluation-General Medical Diagnosis Admission Date Oct 23, 2018 at 08:01 Medical Diagnosis: right TKA Onset Date: Oct 23, 2018 Therapy Diagnosis Therapy Diagnosis: impaired mobility, strength, endurance, ROM Height/Weight Height (Feet): 5 Height (Inches): 7.00 Weight (Pounds): 192 Weight (Ounces): 2.0 Precautions Precautions/Isolations: Standard Precautions Weight Bear Status Right Lower Extremity: Right Weight Bearing/Tolerated Referral Physician: Remington Hong Reason for Referral: Evaluation/Treatment Medical History Pertinent Medical History: HTN Additional Medical History PAST MEDICAL HISTORY: Reflux and dry eyes. PAST SURGICAL HISTORY: Tonsillectomy, cataracts, left total knee arthroplasty. Reviewed History: Yes Social History Home: Single Level Current Living Status: Spouse Entry Into Home: Stairs Without Railing PT Steps Into Home: 2 Prior/Core FIM Prior Level of Function Therapy Code Descriptions/Definitions Functional Tripp Measure: 0=Not Assessed/NA 4=Minimal Assistance 1=Total Assistance 5=Supervision or Setup 2=Maximal Assistance 6=Modified Tripp 3=Moderate Assistance 7=Complete Tripp Therapy Quality Codes: 6 Independent with activity with or without an assistive device 5 Patient requires set up or clean up by helper. Patient completes activity by themselves 4 Supervision or touching assist (CGA). [place] provide cues , steadying assist 3 The helper provides less than half the effort to complete the activity 2 The helper provides more than half the effort to complete the activity 1 Dependent. The helper does all the effort to complete an activity 7 Patient refused to complete or attempt activity 9 The patient did not perform the activity before the current illness or in jury 88 Not attempted due to Medical conditions or safety concerns Functional Abilities and Goals: Independent: Patient completed the activities by him/herself, with or without an assistive device, with no assistance from a helper. Needed Some Help: Patient needed partial assistance from another person to complete activities. Dependent: A helper completed the activities for the patient. Unknown: Not Applicable: Bed Mobility: 7 Transfers (B,C,W/C) (FIM): 7 Gait: 7 Stairs: 7 Indoor Mobility (Ambulation): Independent Stairs: Independent PT Evaluation-Current Subjective Patient in bed pre tx, agrees to PT, has little to no pain at rest. Pt/Family Goals to be independent at home Objective Patient Orientation: Person, Place, Situation Attachments: SCD's, Polar Pack, IV ROM/Strength ROM Lower Extremities right knee flexion 90 degrees, extension +5 degrees Strength Lower Extremities NT Neuromuscular (Tone, Coordination, Reflexes) NT Sensory Vision: Wears Glasses Hearing: Functional Sensation Right Lower Extremit: Intact Sensation Left Lower Extremity: Intact Transfers Therapy Code Descriptions/Definitions Functional Tripp Measure: 0=Not Assessed/NA 4=Minimal Assistance 1=Total Assistance 5=Supervision or Setup 2=Maximal Assistance 6=Modified Tripp 3=Moderate Assistance 7=Complete Tripp Transfers (B, C, W/C) (FIM): 5 Scootin Rollin Supine to/from Sit: 5 Sit to/from Stand: 5 Patient had some mild dizziness after standing and recovered after just a few seconds. She did become nauseated after standing and needed to vomit into basin but was ok after that. Cues for hand placement and positioning. Gait Mode of Locomotion: Walk Anticipated Mode of Locomotion: Walk Gait (FIM): 2 Distance: 50' Gait Level of Assist: 4 Gait Persons Needed: 1 Gait Assistive Device: FWW Comments/Gait Description CGA, good step through and heel strike, slow and antalgic, steady no LOB. She did begin to feel shaky during ambulation and needed to head back to her bed. Balance Sitting Static: Normal Sitting Dynamic: Normal Standing Static: Good Standing Dynamic: Good Treatment RLE total knee protocol x10 (AP, QS, HS, SAQ, SLR), CPM donned and set to her leg and set to 70/-2 degrees. Polar care and SCD's donned. Patient in bed post tx with nurse call, phone, tray, all needs met. in the room. Assessment/Needs Patient has impaired mobility, strength, endurance, ROM post right knee TKA. She has good ROM in right knee to start with. Rehab Potential: Fair PT Short Term Goals Short Term Goals Time Frame: Oct 30, 2018 Transfers (B,C,W/C) (FIM): 6 Gait (FIM): 5 Gait Distance Comment: 150' Gait Level of Assist: 5 Gait Assistive Device: FWW PT Plan Problem List Problem List: Activity Tolerance, Functional Strength, Safety, Balance, Gait, Transfer, Bed Mobility, ROM Treatment/Plan Treatment Plan: Continue Plan of Care Treatment Plan: Bed Mobility, Education, Functional Activity Otilio, Functional Strength, Gait, Safety, Therapeutic Exercise, Transfers Treatment Duration: Oct 30, 2018 Frequency: 11 times per week Estimated Hrs Per Day: .25 hour per day (15-30') Patient and/or Family Agrees t: Yes Safety Risks/Education Patient Education: Gait Training, Transfer Techniques, Correct Positioning, Safety Issues Teaching Recipient: Patient Teaching Methods: Demonstration, Discussion Response to Teaching: Reinforcement Needed Discharge Recommendations Plan Patient will perform bed mobility and transfer training, balance and endurance training, functional strengthening, stair training, gait training, and education, to improve functional mobility and independence at home. Therapy D/C Recommendations: Home w/ Family Support Time/GCodes Time In: 1405 Time Out: 1430 Total Billed Treatment Time: 25 Total Billed Treatment 1 visit EVL 15' GT 10' FAVIAN BARRETT PT Oct 23, 2018 14:41
--- NOTE | 2018-10-23 17:10 | OPERATIVE REPORT ---
DATE OF SERVICE: 10/23/2018 PREOPERATIVE DIAGNOSIS: Right knee primary osteoarthritis. POSTOPERATIVE DIAGNOSIS: Right knee primary osteoarthritis. PROCEDURE: Right total knee arthroplasty. SURGEON: Bryson Lopez MD GRINDING WHEEL OPERATOR: Remington Hong, who assisted throughout the procedure and closed the incision. ANESTHESIA: General endotracheal plus regional nerve block by Chai Maynard CRNA. TOURNIQUET TIME: 65 minutes at 300 mmHg. ESTIMATED BLOOD LOSS: Minimal. DRAINS: None. COMPLICATIONS: None. POSTOPERATIVE PLAN: Routine protocol. The patient was transferred to recovery room awake and in stable condition. MATERIALS: MicroPort cemented size 4 femur, cemented size 4 tibia with 10 mm insert and a cemented size 32 patella. STATEMENT OF MEDICAL NECESSITY: The patient is a 73-year-old female with longstanding progressive right anterior knee pain. She had severe patellofemoral arthrosis as well as moderate medial compartment arthrosis. She has tried injections, anti-inflammatories, activity modifications without relief. Due to functional impairment and failure to improve with conservative measures, the patient elected to proceed with surgical intervention. DESCRIPTION OF PROCEDURE: After risks and benefits of procedure were discussed and questions were answered and informed consent was signed and placed on the chart. The operative site was confirmed in the preoperative holding area initialed by the surgeon. The patient was then transferred to the operating room. After adequate levels of regional and general endotracheal anesthetic were obtained, a timeout was called, confirming the operative site. The right lower extremity was prepped and draped in the usual sterile fashion. A standard anterior approach was utilized. Hemostasis was obtained with cautery. Medial parapatellar arthrotomy was performed leaving 1 cm cuff on the patella for later reattachment. A portion of the fat pad was resected and subperiosteal release was performed in the proximal medial tibia. The ACL was resected. The intramedullary guide was passed into the femur and the distal cutting block was placed. Distal cut was made. The femur sized to a size 4. The 4 cutting block was placed parallel to the epicondylar axis and the cuts were made from posterior to anterior. A subperiosteal release was then carefully performed on the posterior distal femur, being careful to stay on the bony surface. The intramedullary guide was passed into the tibia. The tibial cutting block was placed. The drop armando transected the intramedullary access and the cut was made. The four baseplate was placed and pinned into position and again the drop armando transected the intramedullary access. This was prepared with the drill and keel punch. The patella was then prepared by resecting 10 mm off the undersurface. The peg guide was placed and peg holes were drilled. The trials were inserted with 10 mm insert and 32 mm button. Full extension was easily obtained, 120 degrees of flexion was easily obtained with gravity. The patella tracked well. There was no anterior/posterior or medial/lateral laxity in flexion or extension. The trials were removed. The joint was copiously irrigated with pulse lavage. The periarticular block was placed in the posterior capsule, medial and lateral retinaculum and extensor mechanism and subcutaneous tissues. The bone ends were irrigated and dried. The tibial baseplate was cemented into position. Excess cement was removed. The superior surface was irrigated and dried and the polyethylene insert was placed. The distal femur was irrigated and dried and the femoral prosthesis was cemented into position. Excess cement was removed. The knee was brought into full extension. The undersurface of patella was irrigated and dried. The patellar button was cemented into position. Excess cement was removed. Once cement had cured, the knee was taken through a range of motion. Full extension was easily obtained. There was no anterior/posterior or medial/lateral laxity in flexion or extension. The patella tracked well. The joint was further irrigated. The arthrotomy was closed with #2 FiberWire in [id number] interrupted fashion. The knee was flexed. No undue tension was noted at the repair site. The patella tracked well. The subcutaneous tissues were irrigated with pulse lavage using a total of 6 liters throughout the procedure. A 0 Vicryl was used for the deep subcutaneous tissue, 2-0 Vicryl for the superficial subcutaneous tissue. Randy were used on the skin. A soft dressing was applied. The tourniquet was deflated and the patient was transferred to the recovery room awake and in stable condition. Job ID: [id number] DocumentID: [id number] Dictated Date: 10/23/2018 11:04:12 Gambreler Helper Date: 10/23/2018 17:09:50 Dictated By: BRYSON LOPEZ MD
[2018-10-23] MEDS: CEFUROXIME INJECTION 750 MG in WATER (STERILE) FOR INJECTION 10 ML IV SCH (17:40)
--- NOTE | 2018-10-23 18:00 | NUR ---
NOTE THAT THIS RN CALLED DR MONACO AND LEFT MESSAGE ABOUT CONSULT FOR [facility] DR ---
[2018-10-23] MEDS: SENNA W/DOCUSATE (SENOKOT S) TABLET PO SCH (19:49)
[2018-10-24] VITALS (7 sets, daily range): BP systolic 100–143; BP diastolic 52–78
[2018-10-24] MEDS: NS IV 1000 ML 1,000 ML IV SCH ×3 (01:48→14:39)
[2018-10-24] MEDS: CEFUROXIME INJECTION 750 MG in WATER (STERILE) FOR INJECTION 10 ML IV SCH (01:54)
[2018-10-24] MEDS: MULTIVIT W/MINERALS TAB (THERAGRAN M) PO SCH (05:53)
[2018-10-24 05:56] LABS: HEMOGLOBIN 10.3 G/DL (11.5-16.0)
--- NOTE | 2018-10-24 08:03 | Progress Note-Standard ---
Standard Progress Note Progress Notes/Assess & Plan Date Seen by a Provider: Oct 24, 2018 Time Seen by a Provider: 08:02 Progress/Assessment & Plan post op check no complaints Radiographs--HW well positioned without fracture RLE-2 plus DP pulse with brisk cap refill. intact DF and PF of toes and ankle. sensation intact throughout s/p RTKA mobilize as able Final Diagnosis no complaints Vital Signs Date Time Temp Pulse Resp B/P (MAP) Pulse Ox O2 Delivery O2 Flow Rate FiO2 10/24/18 07:14 98.2 56 18 111/58 (75) 99 Room Air 10/24/18 06:04 20 10/24/18 04:00 98.2 53 20 143/78 (99) 99 Room Air 10/24/18 00:48 98.4 50 18 100/52 (68) 96 Room Air 10/23/18 21:00 20 10/23/18 20:00 Room Air 10/23/18 19:44 97.6 53 20 122/69 (86) 95 Room Air 10/23/18 15:41 97.4 42 20 124/65 (84) 98 Room Air 10/23/18 15:23 96 Room Air 10/23/18 13:10 97.2 20 10/23/18 12:36 20 10/23/18 12:00 97.2 55 20 169/76 (107) 97 Room Air 10/23/18 11:55 96 Room Air 10/23/18 11:55 98.5 14 98 Room Air 10/23/18 11:50 19 98 Room Air 10/23/18 11:40 20 98 Room Air 10/23/18 11:30 14 99 OxyMask 2 10/23/18 11:25 100 OxyMask 2 10/23/18 11:20 18 100 OxyMask 5 10/23/18 11:10 16 100 OxyMask 5 10/23/18 11:04 97.7 18 100 OxyMask 10 10/23/18 08:15 97.5 57 16 135/84 99 I & O 10/24/18 07:00 Intake Total 3327 ml Output Total 1100 ml Balance 2227 ml Laboratory Tests Test 10/24/18 05:23 Range/Units Hemoglobin 10.3 L 11.5-16.0 G/DL Hematocrit 31 L 35-52 % RLE--dressing intact.NVI distally. able to actively flex knee. no calf tenderness s/p RTKA doing well PT/OT PAZ LOPEZ MD Oct 24, 2018 08:03
[2018-10-24] MEDS ORDERED: ASPIRIN E.C. 81 MG (ECOTRIN) TAB PO NR (08:15)
[2018-10-24] MEDS: SENNA W/DOCUSATE (SENOKOT S) TABLET PO SCH ×2 (08:33→21:12)
[2018-10-24] MEDS: ENOXAPARIN 30 MG/0.3 ML (LOVENOX) SYR SC SCH ×2 (08:33→20:33)
[2018-10-24] MEDS: oxyCODONE/APAP 5/325MG (PERCOCET 5) TABLET PO PRN ×6 (08:34→22:07)
--- NOTE | 2018-10-24 09:55 | Occupational Therapy Eval ---
OT Evaluation-General/PLF Medical Diagnosis Admission Date Oct 23, 2018 at 08:01 Medical Diagnosis: right TKA Onset Date: Oct 23, 2018 Therapy Diagnosis Therapy Diagnosis: impaired ADLs and mobility Height/Weight Height (Feet): 5 Height (Inches): 7.00 Weight (Pounds): 192 Weight (Ounces): 2.0 Precautions Precautions/Isolations: Fall Prevention, Standard Precautions Safety Interventions: None Weight Bear Status Weight Bearing Restriction: Weight Bearing/Tolerated Location Restriction: R LE Referral Physician: Remington Hong Referral Reason: Activity Tolerance, Self Care, Evaluation/Treatment, Strengthening/ROM Medical History Pertinent Medical History: HTN Reviewed History: Yes Social History Home: Single Level Current Living Status: Spouse Entry Into Home: Stairs Without Railing Steps Into Home: 2 ADL-Prior Level of Function Therapy Code Descriptions/Definitions Functional [place] Measure: 0=Not Assessed/NA 4=Minimal Assistance 1=Total Assistance 5=Supervision or Setup 2=Maximal Assistance 6=Modified [place] 3=Moderate Assistance 7=Complete [place] Therapy Quality Codes: 6 Independent with activity with or without an assistive device 5 Patient requires set up or clean up by helper. Patient completes activity by themselves 4 Supervision or touching assist (CGA). [place] provide cues , steadying assist 3 The helper provides less than half the effort to complete the activity 2 The helper provides more than half the effort to complete the activity 1 Dependent. The helper does all the effort to complete an activity 7 Patient refused to complete or attempt activity 9 The patient did not perform the activity before the current illness or injury 88 Not attempted due to Medical conditions or safety concerns Functional Abilities and Goals: Independent: Patient completed the activities by him/herself, with or without an assistive device, with no assistance from a helper. Needed Some Help: Patient needed partial assistance from another person to complete activities. Dependent: A helper completed the activities for the patient. Unknown: Not Applicable: Self Care: Independent Functional Cognition: Independent DME/Equipment: Bath Chair, Grab Bars, Shower Drive Self: Yes OT Current Status Subjective laying in bed upon OT arrival in no apparent distress. pt complains of 3/10 Left knee pain. pt stated she wants to discharge home and do outpt PT. Mental Status/Objective Patient Orientation: Person, Place, Time, Situation Attachments: IV Current Glasses/Contacts: Yes Hearing Aids: No Dentures/Partials: No Hand Dominance: Right Upper Extremity ROM WFL Upper Extremity Coordination WFL Upper Extremity Sensation WFL Upper Extremity Strength WFL ADL-Treatment Therapy Code Descriptions/Definitions Functional [place] Measure: 0=Not Assessed/NA 4=Minimal Assistance 1=Total Assistance 5=Supervision or Setup 2=Maximal Assistance 6=Modified [place] 3=Moderate Assistance 7=Complete [place] Therapy Quality Codes: 6 Independent with activity with or without an assistive device 5 Patient requires set up or clean up by helper. Patient completes activity by themselves 4 Supervision or touching assist (CGA). [place] provide cues , steadying assist 3 The helper provides less than half the effort to complete the activity 2 The helper provides more than half the effort to complete the activity 1 Dependent. The helper does all the effort to complete an activity 7 Patient refused to complete or attempt activity 9 The patient did not perform the activity before the current illness or injury 88 Not attempted due to Medical conditions or safety concerns OT Short Term Goals Short Term Goals Transfers (B,C,W/C) (FIM): 6 1=Demonstrate adherence to instructed precautions during ADL tasks. 2=Patient will verbalize/demonstrate understanding of assistive devices/modifications for ADL. 3=Patient will improve strength/tolerance for activity to enable patient to perform ADL's. OT Territory Outside Sales Manager Goals Territory Outside Sales Manager Goals 1=Demonstrate adherence to instructed precautions during ADL tasks. 2=Patient will verbalize/demonstrate understanding of assistive devices/modifications for ADL. 3=Patient will improve strength/tolerance for activity to enable patient to perform ADL's. OT Education/Plan Problem List/Assessment Assessment: No Skilled OT Needs ID'd pt stated she completed full bath this AM independently with no issues. and NSG staff agreed. pt simulated a shower for OT with no safety concern, perform grooming standing at sink, toileting, LB dressing, and functional transfers MOD I using FRW with good safety awareness. pt maintain good balance throughout session and demo good activity tolerance. OT services not indicate secondary to pt functioning at [facility]. pt agrees she does not need OT services. d/c OT at this time. pt is safe to return home at this time. Discharge Recommendations Plan/Recommendations: Continue POC Therapy D/C Recommendations: Home w/ Family Support Equpiment Recommendations-D/C: None Treatment Plan/Plan of Care Treatment,Training & Education: Yes Patient would benefit from OT for education, treatment and training to promote independence in ADL's, mobility, safety and/or upper extremity function for ADL's. Treatment Duration: Oct 24, 2018 Frequency: 1 time per week (d/c ) Estimated Hrs Per Day: Other (OT services not indicated ) Rehab Potential: Fair Time/GCodes Start Time: 09:22 Stop Time: 09:43 Billed Treatment Time EVL 21 minutes JUAN JOSÉ RODRIGUEZ OT Oct 24, 2018 09:54
--- NOTE | 2018-10-24 10:28 | Consultation (CHS) ---
HPI History of Present Illness: Here for Right total knee Asked to see patient for medical consult Patient take medication for GERD. She has not had any problems with reflux recently but states that if she does not take her medication that it is hard for her to eat. Chronic Pain: Has been taking ibuprofen and Percocet for pain. Source: patient, spouse Exam Limitations: no limitations Date seen by provider: Oct 24, 2018 Time Seen by Provider: 10:00 Attending Physician Bryson Goncalves MD [facility] Consult Date of Admission Oct 23, 2018 at 08:01 Home Medications Home Medications Reviewed patient Home Medication Reconciliation performed by pharmacy medication reconciliations electronic sales and service technician and/or nursing. Patients Allergies have been reviewed. Allergies Coded Allergies: No Known Drug Allergies (Unverified , 04/24/18) [id number] Hx Patient Social History Living Status: Lives at home with Alcohol Use: Denies Use Recreational Drug Use: No Recent Foreign Travel: No Contact w/other who traveled: No Recent Hopitalizations: No Recent Infectious Disease Expo: No Physical Abuse Screen: No Sexual Abuse: No Immunizations Up To Date Tetanus Booster (TDap): Unknown Past Medical History Osteoarthritis GERD s/p Left total Knee 2018 Family Medical History Significant Family History: No Pertinent Family Hx Family History: Alcoholism 19 MOTHER Asthma 19 FATHER Cardiovascular disease 19 MOTHER Completed stroke 19 MOTHER Dementia 19 MOTHER Hypertension 19 MOTHER Respiratory disorder 19 FATHER (lung ca) Review of Systems (CHC) Constitutional: no symptoms reported; No chills, No fever, No weakness EENTM: no symptoms reported; No mouth pain, No nose congestion, No nose pain, No throat pain Respiratory: no symptoms reported; No cough, No dyspnea on exertion, No orthopnea, No short of breath Cardiovascular: no symptoms reported; No chest pain, No edema, No palpitations Gastrointestinal: no symptoms reported; No abdominal pain, No constipation, No diarrhea, No nausea, No vomiting Genitourinary: no symptoms reported; No dysuria, No frequency, No hematuria : No Musculoskeletal: joint pain Skin: no symptoms reported; No lesions, No rash Psychiatric/Neurological: No Symptoms Reported Reviewed Test Results Reviewed Test Results Lab Laboratory Tests Test 10/24/18 05:23 Range/Units Hemoglobin 10.3 L 11.5-16.0 G/DL Hematocrit 31 L 35-52 % Physical Exam-(CHC) Physical Exam Vital Signs VS - Last 72 Hours, by Label 10/23/18 10/23/18 10/23/18 10/23/18 08:15 11:04 11:10 11:20 Temp 97.5 97.7 Pulse 57 Resp 16 18 16 18 B/P (MAP) 135/84 Pulse Ox 99 100 100 100 O2 Delivery OxyMask OxyMask OxyMask O2 Flow Rate 10 5 5 10/23/18 10/23/18 10/23/18 10/23/18 11:25 11:30 11:40 11:50 Resp 14 20 19 Pulse Ox 100 99 98 98 O2 Delivery OxyMask OxyMask Room Air Room Air O2 Flow Rate 2 2 10/23/18 10/23/18 10/23/18 10/23/18 11:55 11:55 12:00 12:36 Temp 98.5 97.2 Pulse 55 Resp 14 20 20 B/P (MAP) 169/76 (107) Pulse Ox 98 96 97 O2 Delivery Room Air Room Air Room Air 10/23/18 10/23/18 10/23/18 10/23/18 13:10 15:23 15:41 19:44 Temp 97.2 97.4 97.6 Pulse 42 53 Resp 20 20 20 B/P (MAP) 124/65 (84) 122/69 (86) Pulse Ox 96 98 95 O2 Delivery Room Air Room Air Room Air 10/23/18 10/23/18 10/24/18 10/24/18 20:00 21:00 00:48 04:00 Temp 98.4 98.2 Pulse 50 53 Resp 20 18 20 B/P (MAP) 100/52 (68) 143/78 (99) Pulse Ox 96 99 O2 Delivery Room Air Room Air Room Air 10/24/18 10/24/18 10/24/18 10/24/18 06:04 07:14 09:00 11:33 Temp 98.2 98.6 Pulse 56 57 Resp 20 18 18 B/P (MAP) 111/58 (75) 129/60 (83) Pulse Ox 99 98 O2 Delivery Room Air Room Air Room Air 10/24/18 15:30 Temp 99.1 Pulse 61 Resp 20 B/P (MAP) 124/60 (81) Pulse Ox 96 O2 Delivery Room Air Capillary Refill : Less Than 3 Seconds General Appearance: WD/WN, no apparent distress HEENT: PERRL/EOMI, pharynx normal Neck: non-tender, full range of motion, supple, normal inspection Respiratory: chest non-tender, lungs clear, normal breath sounds, no respiratory distress, no accessory muscle use Cardiovascular: normal peripheral pulses, regular rate, rhythm, no edema, no murmur Gastrointestinal: normal bowel sounds, non tender, soft, no organomegaly Back: no CVA tenderness, no vertebral tenderness Extremities: no pedal edema, no calf tenderness, normal capillary refill, other (compression stockings in place bilaterally) 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, no motor/sensory deficits, alert, normal mood/affect, oriented x 3 Skin: normal color, warm/dry Lymphatic: no adenopathy Assessment/Plan Assessment/Plan (1) Osteoarthritis of right knee Status: Chronic Assessment & Plan: POD #1 s/p Right Total knee Qualifiers: Qualified Codes: M17.11 - Unilateral primary osteoarthritis, right knee (2) GERD (gastroesophageal reflux disease) Status: Chronic Assessment & Plan: - Continue home med Qualifiers: Qualified Codes: K21.9 - Gastro-esophageal reflux disease without esophagi tis (3) Chronic pain Status: Chronic Assessment & Plan: - Will continue pain meds at this time, would encourage taper after surgery (4) Normocytic anemia Status: Acute Assessment & Plan: - Likely 2/2 to surgery, will continue to monitor daily (5) DVT prophylaxis Status: Acute Assessment & Plan: - Lovenox Clinical Quality Measures DVT/VTE Risk/Contraindication: Risk Factor Score Per Nursin RFS Level Per Nursing on Admit: 4+=Very High YOLI GARNER MD Oct 24, 2018 10:28
--- NOTE | 2018-10-24 10:31 | Anesthesia-General Post-Op ---
General Patient Condition Mental Status/LOC: Same as Preop Cardiovascular: Satisfactory Nausea/Vomiting: Absent Respiratory: Satisfactory Pain: Controlled Complications: Absent Post Op Complications Complications None Follow Up Care/Instructions Patient Instructions None needed. Anesthesia/Patient Condition Patient Condition Patient is doing well, no complaints, stable vital signs, no apparent adverse anesthesia problems. No complications reported per nursing. ELIO CORREA CRNA Oct 24, 2018 10:31
--- NOTE | 2018-10-24 10:54 | Physical Therapy Daily Note ---
PT Daily Note-Current Subjective Patient agrees to PT. No c/o and report she will dismiss to home tomorrow after therapies. Pain Numeric Pain Scale: 5-Moderate Pain Location: Right Location Body Site: Knee Pain Description: Acute Mental Status Patient Orientation: Normal For Age Attachments: IV Transfers Therapy Code Descriptions/Definitions Functional [place] Measure: 0=Not Assessed/NA 4=Minimal Assistance 1=Total Assistance 5=Supervision or Setup 2=Maximal Assistance 6=Modified [place] 3=Moderate Assistance 7=Complete [place] Therapy Quality Codes: 6 Independent with activity with or without an assistive device 5 Patient requires set up or clean up by helper. Patient completes activity by themselves 4 Supervision or touching assist (CGA). [place] provide cues , steadying assist 3 The helper provides less than half the effort to complete the activity 2 The helper provides more than half the effort to complete the activity 1 Dependent. The helper does all the effort to complete an activity 7 Patient refused to complete or attempt activity 9 The patient did not perform the activity before the current illness or injury 88 Not attempted due to Medical conditions or safety concerns Transfers (B, C, W/C) (FIM): 6 Scootin Rollin Supine to/from Sit: 6 Sit to/from Stand: 6 Bed to/from Chair: 6 Weight Bearing Right Lower Extremity: Right Weight Bearing/Tolerated Gait Training Gait (FIM): 6 Distance (FIM): 3=150 ft Distance: 250' Gait Level of Assist: 6 Gait Assistive Device: FWW slightly antalgic, reciprocal pattern with FWW Exercises Supine Ex: Ankle pumps, Quad Set, Heel Slides, Straight leg raise Supine Reps: 15 Seated Therapy Exercises: Ankle pumps, Long arc quads Seated Reps: 15 Treatments CPM 0-80 degrees with polar pack in place after treatment. Assessment Patient tolerated treatment well and is highly motivated with progress. Plan dismissal tomorrow after therapies. PT Short Term Goals Short Term Goals Time Frame: Oct 30, 2018 Transfers (B,C,W/C) (FIM): 6 Gait (FIM): 5 Gait Distance Comment: 150' Gait Level of Assist: 5 Gait Assistive Device: FWW PT Plan Treatment/Plan Treatment Plan: Continue Plan of Care Treatment Plan: Bed Mobility, Education, Functional Activity Otilio, Functional Strength, Gait, Safety, Therapeutic Exercise, Transfers Treatment Duration: Oct 30, 2018 Frequency: 11 times per week Estimated Hrs Per Day: .25 hour per day (15-30') Patient and/or Family Agrees t: Yes Time/GCodes Time In: 1015 Time Out: 1040 Total Billed Treatment Time: 25 Total Billed Treatment 1 visit EX 15 min Gt 10 min REMI RAMÍREZ PT Oct 24, 2018 10:53
--- NOTE | 2018-10-24 11:18 | NUR ---
IRF Evaluation Order received to evaluate patient for the ARU. Chart reviewed and it appears patient is ambulating (250ft, FWW) and transferring with modified independence; therefore, the patient does not require intensive therapies, at this time. Thank you for this referral.
--- NOTE | 2018-10-24 13:27 | NUR ---
CM/SS respond to consult. HHC: Explored agencies with patient, she indicates her preference to be [facility]. Referral completed in anticipation of discharge Sunday or Sunday. DME: Patient has a FWW at home for her use. Patient has family to assist as needed once home. No other needs identified.
--- NOTE | 2018-10-24 14:11 | Physical Therapy Daily Note ---
PT Daily Note-Current Subjective Patient on CPM. Agrees to PT. Pain Numeric Pain Scale: 5-Moderate Pain Location: Right Location Body Site: Knee Pain Description: Acute Mental Status Patient Orientation: Normal For Age Attachments: Polar Pack, IV Transfers Therapy Code Descriptions/Definitions Functional [place] Measure: 0=Not Assessed/NA 4=Minimal Assistance 1=Total Assistance 5=Supervision or Setup 2=Maximal Assistance 6=Modified [place] 3=Moderate Assistance 7=Complete [place] Therapy Quality Codes: 6 Independent with activity with or without an assistive device 5 Patient requires set up or clean up by helper. Patient completes activity by themselves 4 Supervision or touching assist (CGA). [place] provide cues , steadying assist 3 The helper provides less than half the effort to complete the activity 2 The helper provides more than half the effort to complete the activity 1 Dependent. The helper does all the effort to complete an activity 7 Patient refused to complete or attempt activity 9 The patient did not perform the activity before the current illness or injury 88 Not attempted due to Medical conditions or safety concerns Transfers (B, C, W/C) (FIM): 6 Scootin Supine to/from Sit: 6 Sit to/from Stand: 6 Weight Bearing Right Lower Extremity: Right Weight Bearing/Tolerated Gait Training Gait (FIM): 6 Distance (FIM): 3=150 ft Distance: 275' Gait Level of Assist: 6 Gait Assistive Device: FWW steady, reciprocal pattern Exercises Supine Ex: Ankle pumps, Quad Set, Glut sets, Heel Slides, Straight leg raise Supine Reps: 15 (AROM) Seated Therapy Exercises: Long arc quads Seated Reps: 15 Assessment Patient improving with treatment plan. No c/o or concerns. PT Short Term Goals Short Term Goals Time Frame: Oct 30, 2018 Transfers (B,C,W/C) (FIM): 6 Gait (FIM): 5 Gait Distance Comment: 150' Gait Level of Assist: 5 Gait Assistive Device: FWW PT Plan Treatment/Plan Treatment Plan: Continue Plan of Care Treatment Plan: Bed Mobility, Education, Functional Activity Otilio, Functional Strength, Gait, Safety, Therapeutic Exercise, Transfers Treatment Duration: Oct 30, 2018 Frequency: 11 times per week Estimated Hrs Per Day: .25 hour per day (15-30') Patient and/or Family Agrees t: Yes Time/GCodes Time In: 1336 Time Out: 1350 Total Billed Treatment Time: 14 Total Billed Treatment 1 visit FA 14 min DESIREE,REMI PT Oct 24, 2018 14:11
--- NOTE | 2018-10-24 14:43 | NUR ---
Pt is [employer] and declines communion because she just ate.
[2018-10-25] MEDS: oxyCODONE/APAP 5/325MG (PERCOCET 5) TABLET PO PRN ×3 (01:52→08:02)
[2018-10-25] MEDS: NS IV 1000 ML 1,000 ML IV SCH (03:13)
[2018-10-25 03:38] VITALS: BP 132/72
[2018-10-25 06:39] LABS: HEMOGLOBIN 10.7 G/DL (11.5-16.0)
[2018-10-25] MEDS: MULTIVIT W/MINERALS TAB (THERAGRAN M) PO SCH (06:45)
[2018-10-25] MEDS ORDERED: morphine INJ 4 MG/ML 1 ML (VIAL/SYRINGE) IVP PRN (07:00)
--- NOTE | 2018-10-25 07:01 | Progress Note-Standard ---
Standard Progress Note Progress Notes/Assess & Plan Date Seen by a Provider: Oct 25, 2018 Time Seen by a Provider: 07:00 Progress/Assessment & Plan post op check no complaints Radiographs--HW well positioned without fracture RLE-2 plus DP pulse with brisk cap refill. intact DF and PF of toes and ankle. sensation intact throughout s/p RTKA mobilize as able Final Diagnosis no complaints Vital Signs Date Time Temp Pulse Resp B/P (MAP) Pulse Ox O2 Delivery O2 Flow Rate FiO2 10/25/18 06:34 16 10/25/18 03:38 98.1 61 18 132/72 (92) 96 Room Air 10/24/18 23:34 99.0 61 18 135/66 (89) 95 Room Air 10/24/18 21:00 18 10/24/18 21:00 Room Air 10/24/18 19:32 97.5 61 20 119/58 (78) 98 Room Air 10/24/18 15:30 99.1 61 20 124/60 (81) 96 Room Air 10/24/18 11:33 98.6 57 18 129/60 (83) 98 Room Air 10/24/18 09:00 Room Air 10/24/18 07:14 98.2 56 18 111/58 (75) 99 Room Air I & O 10/25/18 06:59 Intake Total 2970 ml Balance 2970 ml Laboratory Tests Test 10/25/18 05:49 Range/Units Hemoglobin 10.7 L 11.5-16.0 G/DL Hematocrit 32 L 35-52 % RLE--incision clean and dry. No calf tenderness. Neg Adalberto's s/p RTKA doing well DC home later today PAZ LOPEZ MD Oct 25, 2018 07:01
--- NOTE | 2018-10-25 07:58 | DISCHARGE SUMMARY ---
DATE OF SERVICE: DIAGNOSES: 1. Right knee primary osteoarthritis. 2. Reflux. PROCEDURE: Right total knee arthroplasty. SUMMARY: The patient is a 73-year-old female who was admitted the day of right total knee arthroplasty, which she underwent without complications. Postoperatively, she did very well. At the time of discharge, her wound was clean and dry. She had no calf tenderness. Negative Homans sign. She was tolerating diet well and tolerating pain with oral pain medication. CONDITION AT DISCHARGE: Good. DISCHARGE DIET: Regular. FOLLOWUP: Followup is in three weeks. ACTIVITIES: Weightbearing as tolerated with a walker. Home physical therapy has been arranged. DISCHARGE MEDICATIONS: Home medications with Percocet as needed for pain and one aspirin per day for 30 days. Job ID: [id number] DocumentID: [id number] Dictated Date: 10/24/2018 17:33:38 Crystal Attacher Date: 10/25/2018 07:58:28 Dictated By: PAZ LOPEZ MD
[2018-10-25 08:00] VITALS: BP 127/81
[2018-10-25] MEDS: SENNA W/DOCUSATE (SENOKOT S) TABLET PO SCH (08:01)
[2018-10-25] MEDS: ENOXAPARIN 30 MG/0.3 ML (LOVENOX) SYR SC SCH (08:01)
--- NOTE | 2018-10-25 08:47 | NUR ---
OIL BAY TECHNICIAN pump discontinued this am. Remaining amount 86 ml wasted with Tiffanie HAYNES.
--- NOTE | 2018-10-25 09:21 | Physical Therapy Daily Note ---
PT Daily Note-Current Subjective Patient agrees to PT and report she is going home this a.m. Pain Numeric Pain Scale: 5-Moderate Pain Location: Right Location Body Site: Knee Pain Description: Acute Mental Status Patient Orientation: Normal For Age Transfers Therapy Code Descriptions/Definitions Functional [place] Measure: 0=Not Assessed/NA 4=Minimal Assistance 1=Total Assistance 5=Supervision or Setup 2=Maximal Assistance 6=Modified [place] 3=Moderate Assistance 7=Complete [place] Therapy Quality Codes: 6 Independent with activity with or without an assistive device 5 Patient requires set up or clean up by helper. Patient completes activity by themselves 4 Supervision or touching assist (CGA). [place] provide cues , steadying assist 3 The helper provides less than half the effort to complete the activity 2 The helper provides more than half the effort to complete the activity 1 Dependent. The helper does all the effort to complete an activity 7 Patient refused to complete or attempt activity 9 The patient did not perform the activity before the current illness or injury 88 Not attempted due to Medical conditions or safety concerns Transfers (B, C, W/C) (FIM): 6 Scootin Rollin Supine to/from Sit: 6 Sit to/from Stand: 6 Bed to/from Chair: 6 Weight Bearing Right Lower Extremity: Right Weight Bearing/Tolerated Gait Training Gait (FIM): 6 Distance (FIM): 3=150 ft Distance: 300' Gait Level of Assist: 6 Gait Assistive Device: FWW reciprocal pattern Stair Training Stair Training: Handrails/: 1 handrail, uses walker Stairs (FIM): 2 #of Steps: 4 Stairs: Pattern: Step to Level of Assist: 5 Exercises Supine Ex: Ankle pumps, Quad Set, Heel Slides, Straight leg raise Supine Reps: 15 Seated Therapy Exercises: Long arc quads Seated Reps: 15 Assessment Patient attained all functional goals and is safe to return to home with home health intervention. PT to dismiss patient from services at this time. PT Short Term Goals Short Term Goals Time Frame: Oct 30, 2018 Transfers (B,C,W/C) (FIM): 6 Gait (FIM): 5 Gait Distance Comment: 150' Gait Level of Assist: 5 Gait Assistive Device: FWW PT Plan Treatment/Plan Treatment Plan: Discontinue PT, goals met Treatment Plan: Bed Mobility, Education, Functional Activity Otilio, Functional Strength, Gait, Safety, Therapeutic Exercise, Transfers Treatment Duration: Oct 30, 2018 Frequency: 11 times per week Estimated Hrs Per Day: .25 hour per day (15-30') Patient and/or Family Agrees t: Yes Time/GCodes Time In: 805 Time Out: 818 Total Billed Treatment Time: 13 Total Billed Treatment 1 visit FA 13 min REMI RAMÍREZ PT Oct 25, 2018 09:20
[2018-10-25 10:55] VITALS: BP 127/81
--- NOTE | 2018-10-30 14:57 | Progress Note-Standard ---
Standard Progress Note Progress Notes/Assess & Plan Date Seen by a Provider: Oct 23, 2018 Time Seen by a Provider: 10:00 Final Diagnosis Addendum to anesthesia record - anesthetic plan: block done per surgeon request for postop pain control ELIO CORREA CRNA Oct 30, 2018 14:57
== END 2018-10-25 11:00 | disposition home or self-care (01) | DRG 470 ==
LOC: 4TH 08:01 → SURG 08:02 → 4TH 11:55
PROVIDERS: ADMIT Orthopaedic Surgery; ATTEND Orthopaedic Surgery
PROC: 0SRC0J9 Replacement of Right Knee Joint with Synthetic Substitute, Cemented, Open Approach (ICD-10-PCS; principal; 2018-10-23 09:26)
DX: M17.11 Unilateral primary osteoarthritis, right knee (principal); I11.9 Hypertensive heart disease without heart failure; K21.9 Gastro-esophageal reflux disease without esophagitis; G89.29 Other chronic pain; D64.9 Anemia, unspecified; Z96.652 Presence of left artificial knee joint
CPT/HCPCS: 36415; 73560; 85014; 85018; 86850; 86900; 86901; 94664

== ENCOUNTER 2018-12-06 08:00 | Outpatient (RCR) | payer MEDICARE, OTHER ==
[~2018-12-06 08:00] MED LIST changes: -OMEP20CA12 PO; +OMEP20CA13 PO
== END 2018-12-23 09:59 | disposition home or self-care (01) ==
PROVIDERS: ATTEND Orthopaedic Surgery
DX: M17.11 Unilateral primary osteoarthritis, right knee (principal); Z96.651 Presence of right artificial knee joint

== ENCOUNTER → 2020-11-16 | Outpatient (CLI) | payer MEDICARE, OTHER ==
[~2020-11-16] MED LIST changes: -IBUP-2055 PO; +IBUP-2473 PO; -OMEP20CA13 PO; +OMEP20CA18 PO
--- NOTE | 2020-11-16 10:20 | Diagnostic Imaging Report ---
INDICATION: Postmenopausal state. COMPARISON: 12/20/2017 FINDINGS: AP Spine L1-L4: [BMD (g/cm2): 1.106] [T-Score: -0.8] [Z-Score: 0.3] [BMD Previous: 1.237] [BMD % Change: -10.6] LT Hip Neck: [BMD (g/cm2): 0.830] [T-Score: -1.5] [Z-Score: 0.0] LT Hip Total: [BMD (g/cm2):0.849] [T-Score:-1.3] [Z-Score: 0.0] [BMD Previous: 0.825] [BMD % Change: 2.9] RT Hip Neck: [BMD (g/cm2):0.822] [T-Score:-1.6] [Z-Score:-0.1] RT Hip Total: [BMD (g/cm2):0.870] [T-score:-1.1] [Z-Score:0.2] [BMD Previous:0.835] [BMD % Change:4.2] *Indicates significant change from prior examination based on 95% confidence level. World Health Organization criteria for BMD interpretation classify patients as Normal (T-score at or above -1.0), Osteopenic (T-score between -1.0 and -2.5) or Osteoporotic (T-score at or below -2.5). LIMITATIONS AND MODIFICATION: None. FRACTURE RISK (FRAX SCORE): The ten year probability of (%): Major Osteoporotic Fracture: [11.0] Hip Fracture: [2.1] IMPRESSION: 1. Osteopenia (Low bone mass). 2. No significant change in bone mineral density since prior examination. 3. See below National Osteoporosis Foundation guidelines on when to potentially initiate pharmacologic therapy. Based on the National Osteoporosis Foundation Guidelines, pharmacologic treatment should be initiated in any of the following, unless clinical conditions suggest otherwise: * Any patient with prior fragility fracture of the hip or vertebrae. A spine fracture indicates 5X risk for subsequent spine fracture and 2X risk for subsequent hip fracture. * Osteoporosis (T-score <-2.5). * Postmenopausal women and men age 50 and older with low bone mass/osteopenia (T-score between -1.0 and -2.5) by DXA and 10-year major osteoporotic fracture greater than 20% or a 10-year probability of hip fracture greater than 3%. These fracture risks are supplied above in the FRAX score, if applicable. * Clinician judgement and/or patient preferences may indicate treatment for people with 10-year fracture probabilities above or below these levels. Dictated by: Dictated on workstation # [id number]
== END ==
LOC: RAD 09:30
PROVIDERS: ATTEND Pediatrics
DX: Z00.00 Encounter for general adult medical examination without abnormal findings (principal); M85.851 Other specified disorders of bone density and structure, right thigh; M85.852 Other specified disorders of bone density and structure, left thigh; Z78.0 Asymptomatic menopausal state
CPT/HCPCS: 77080